=== PATIENT | male | born 1935 | race Caucasian/White ===

== ENCOUNTER 2021-07-15 11:19 | Inpatient (IN) | payer MEDICARE, BC ==
[2021-07-15] MEDS ORDERED: Sodium Chloride 0.9% 10 ML Syringe FLUSH PRN (11:42)
--- NOTE | 2021-07-15 12:56 | CR ---
PROCEDURE INFORMATION: Exam: XR Left Foot Exam date and time: 07/15/2021 11:58 AM Age: 86 years old Clinical indication: Other: Open nonhealing surgical wound S/P toe amputation; Prior surgery; Surgery date: 1-6 months; Surgery type: March 2021 toe amputation left foot TECHNIQUE: Imaging protocol: XR Left foot. Views: 1 or 2 views. COMPARISON: No relevant prior studies available. FINDINGS: Bones/joints: Amputation of the 5th toe. There is erosive change of the lateral distal 5th metatarsal head. No acute fractures. Soft tissues: Normal. Vasculature: Vascular calcifications. 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
[2021-07-15 12:57] LABS: ANION GAP 11.8 mEq/L (7-13); CHLORIDE,CL 92 mmol/L (98-107); SODIUM,NA 134 mmol/L (136-145)
--- NOTE | 2021-07-15 12:58 | CR ---
PROCEDURE INFORMATION: Exam: XR Chest Exam date and time: 07/15/2021 11:57 AM Age: 86 years old Clinical indication: Shortness of breath; Additional info: Short of breath TECHNIQUE: Imaging protocol: XR of the chest. Views: 1 view. COMPARISON: CR Chest 1V Frontal 04/30/2018 11:48 PM FINDINGS: Lungs: Right lower lobe atelectasis and consolidation. Right upper lobe linear atelectasis. Pleural spaces: Right pleural effusion. Heart/Mediastinum: Unremarkable. No cardiomegaly. Bones/joints: Unremarkable. IMPRESSION: Right pleural effusion with right lower lobe atelectasis/consolidation.
[2021-07-15] MEDS ORDERED: Potassium Chloride 10 MEQ in Premix Bag 1 BAG IV ONE (13:25)
[2021-07-15] MEDS ORDERED: Potassium Chloride 10 MEQ Tab.ER PO ONE (13:26)
[2021-07-15] MEDS ORDERED: Lidocaine 1% 30 ML SDV ONE (13:26)
[2021-07-15] MEDS ORDERED: Magnesium Sulfate/Water 2 GM in Premix Bag 1 BAG IV ONE (13:27)
--- NOTE | 2021-07-15 13:37 | EDM.PDOC ---
Scribed by Cherise Haider 07/15/21 1202 for Robbie Lizama MD ED HPI GENERAL MEDICAL PROBLEM - General Chief Complaint: General Stated Complaint: NO ENGERY BLOOD PRESSURE Time Seen by Provider: 07/15/21 11:31 Source of Information: Reports: Patient, Family (daughter), Old Records, RN, RN Notes Reviewed History Limitations: Reports: No Limitations - History of Present Illness INITIAL COMMENTS - FREE TEXT/NARRATIVE: Adult daughter presents pt to ER from home by POV with c/o slow progressive worsening of generalized weakness, shortness of breath, low temperature, low BP, confusion, and "failing" in general. Pt denies pain, and is not sure where he is. Pt is unable to provide any further history himself. [place] He has been "in and out" of [facility] this past year. He has been seen by Dr. Golden for anemia and other chronic issues. Family is worried that pt had a left toe amputation several weeks ago and it is open and not healing. Pt was supposed to have vascular stents in his legs about a year ago, but ended up hospitalized with pneumonia and never received stents. Hx of CHF, COPD, CKD, PVD, iron deficiency anemia, pneumonia, chronic A-fib, gout, and chronic resp. failure. Onset: Gradual Duration: Getting Worse Location: Reports: Generalized Quality: Reports: Other (Denies pain) Severity: Severe Improves with: Reports: None Worsens with: Reports: None Associated Symptoms: Reports: No Other Symptoms - Related Data Allergies Allergy/AdvReac Type Severity Reaction Status Date / Time cephalexin monohydrate Allergy Cannot Verified 07/15/21 11:49 [From Keflex] Remember Penicillins Allergy Cannot Verified 07/15/21 11:49 Remember tetanus and diphtheria Allergy Cannot Verified 07/15/21 11:49 toxoids Remember [tetanus & diphtheria toxoids] Home Meds: Home Meds Albuterol [Proventil Neb Soln] 2.5 mg INH Q4HR PRN 04/30/18 [History] Albuterol [Ventolin HFA] 2 puff INH Q4HR PRN 04/30/18 [History] Fluticasone/Salmeterol [Advair 500-50] 2 puff INH BID 04/30/18 [History] Tamsulosin HCl 0.4 mg PO DAILY 04/30/18 [History] Tiotropium [Spiriva HandiHaler] 18 mcg INH DAILY 04/30/18 [History] Verapamil HCl [Verapamil Sr] 40 mg PO DAILY 04/30/18 [History] Warfarin Sodium [Jantoven] 6 mg PO .3DAYSWEEKLY 04/30/18 [History] allopurinoL [Zyloprim] 100 mg PO DAILY 04/30/18 [History] Calcitriol 0.5 mcg PO .MTUWTHF 07/15/21 [History] Ferrous Sulfate 325 mg PO DAILY 07/15/21 [History] Magnesium Sulfate 100 mg PO DAILY 07/15/21 [History] Omeprazole 20 mg PO ACBREAKFAST 07/15/21 [History] Potassium Chloride [Klor-Con 10] 10 meq PO BID 07/15/21 [History] Warfarin Sodium [Jantoven] 4 mg PO .4DAYSWEEKLY 07/15/21 [History] polyethylene glycoL 3350 [MiraLAX] 17 gm PO DAILY PRN 07/15/21 [History] predniSONE [Prednisone] 5 mg PO DAILY 07/15/21 [History] Past Medical History HEENT History: Reports: Hard of Hearing, Other (See Below) Other HEENT History: bilateral hearing aids, dentures, reading glasses Cardiovascular History: Reports: Afib, Angina, CAD, Heart Failure, Hypertension Respiratory History: Reports: COPD, Pneumonia, Recurrent, SOB, Other (See Below) Other Respiratory History: emphymsema Gastrointestinal History: Reports: Bowel Obstruction, GERD Genitourinary History: Reports: Prostate Disorder, Renal Calculus Musculoskeletal History: Reports: Arthritis Dermatologic History: Reports: Eczema, Psoriasis Other Dermatologic History: questionable - Infectious Disease History Infectious Disease History: Reports: Chicken Pox, Measles, Mumps, Pertussis (Whooping Cough) - Past Surgical History GI Surgical History: Reports: Small Bowel Musculoskeletal Surgical History: Reports: Hip Replacement, ORIF Other Musculoskeletal Surgeries/Procedures:: left ORIF, Right KARIS Social & Family History - Family History Family Medical History: No Pertinent Family History Oncologic: Reports: Colon, Other (See Below) Other Oncologic Family History: mother colon ca, sister- brain ca - Caffeine Use Caffeine Use: Reports: Coffee - Living Situation & Occupation Living situation: Reports: , with Spouse Occupation: Retired ED ROS GENERAL - Review of Systems Review Of Systems: Comprehensive ROS is negative, except as noted in HPI. ED EXAM, GENERAL - Physical Exam Exam: See Below Exam Limited By: No Limitations General Appearance: Alert, No Apparent Distress, Cachetic, Other (Frail elderly appearing.) Eye Exam: Bilateral Eye: EOMI, Normal Inspection, PERRL Ears: Normal External Exam, Hearing Grossly Normal Nose: Normal Inspection, No Blood Throat/Mouth: Normal Lips, Normal Voice, No Airway Compromise Head: Atraumatic, Normocephalic Neck: Normal Inspection, Non-Tender Respiratory/Chest: Chest Non-Tender, Decreased Breath Sounds. No: Crackles, Rales, Rhonchi, Wheezing Cardiovascular: Tachycardia, Irregularly Irregular GI/Abdominal: Normal Bowel Sounds, Soft, Non-Tender Extremities: Normal Range of Motion, Non-Tender, No Pedal Edema, Other (Left foot has a slow to heal surgical wound from a 5th toe ampuation, but is granulated and not open.) Neurological: Alert, Oriented (to person only), Confused Psychiatric: Normal Mood, Flat Affect Skin Exam: Dry, No Rash, Cool, Pallor #1 Interpretation EKG Date: 07/15/21 Time: 11:50 Rhythm: A-Fib Rate (Beats/Min): 111 [place]: Normal P-Wave: Present QRS: Normal ST-T: Normal QT: Normal Comparison: NA - No Prior EKG Course - Vital Signs Last Recorded V/S: Last Vital Signs Temp 96.7 F L 07/15/21 12:08 Pulse 107 H 07/15/21 12:08 Resp 20 07/15/21 12:08 BP 113/91 H 07/15/21 12:08 Pulse Ox - Orders/Labs/Meds Orders: Active Orders 24 hr Category Date Time Status Peripheral IV Care [RC] . DIRECTED Care 07/15/21 11:42 Active CORONAVIRUS COVID-19 PING [MOLEC] Stat Lab 07/15/21 12:51 Received CULTURE BLOOD [BC] Stat Lab 07/15/21 12:10 Received CULTURE BLOOD [BC] Stat Lab 07/15/21 12:25 Results REFLEX LACTIC ACID YES OR NO [CHEM] Routine Lab 07/15/21 13:03 Received UA RFX FADIA AND CULT IF INDIC [URIN] Stat Lab 07/15/21 11:42 Ordered Magnesium Sulfate/Water [Magnesium Sulfate in Water 2 Med 07/15/21 13:27 Ordered GM/50 ML] 2 gm Premix Bag 1 bag IV ONETIME Potassium Chloride [KCl in Water 10 MEQ/100 ML] 10 meq Med 07/15/21 13:25 Ordered Premix Bag 1 bag IV ONETIME Sodium Chloride 0.9% [Saline Flush] Med 07/15/21 11:42 Active 10 ml FLUSH ASDIRECTED PRN Blood Culture x2 Reflex Set [OM.PC] Stat Oth 07/15/21 11:40 Ordered Peripheral IV Insertion Adult [OM.PC] Stat Oth 07/15/21 11:41 Ordered Medication Orders Potassium Chloride 10 meq/ (Premix) 100 mls @ 100 mls/hr IV ONETIME ONE Stop: 07/15/21 14:24 Magnesium Sulfate 2 gm/ Premix 50 mls @ 25 mls/hr IV ONETIME ONE Stop: 07/15/21 15:26 Sodium Chloride (Sodium Chloride 0.9% 10 Ml Syringe) 10 ml FLUSH ASDIRECTED PRN PRN Reason: Keep Vein Open Last Admin: 07/15/21 13:16 Dose: 10 ml Documented by: [id number] Labs: Laboratory Tests 07/15/21 07/15/21 07/15/21 Range/Units 12:10 12:10 12:10 WBC 6.7 (5.0-10.0) 10^3/uL RBC 2.75 L (4.6-6.2) 10^6/uL Hgb 10.1 L (14.0-18.0) g/dL Hct 30.1 L (40.0-54.0) % MCV 109.5 H D (80-100) fL MCH 36.7 H (27.0-34.0) pg MCHC 33.6 (33.0-35.0) g/dL Plt Count 194 (150-450) 10^3/uL Neut % (Auto) 81.7 H (42.2-75.2) % Lymph % (Auto) 11.1 L (20.5-50.1) % Chaves % (Auto) 7.2 (2-8) % Eos % (Auto) 0.0 L (1.0-3.0) % Baso % (Auto) 0.0 (0.0-1.0) % PT 29.6 H D (9.0-12.0) SEC INR 3.0 H (0.9-1.2) APTT 35.0 H (22.0-34.0) SEC Sodium 134 L (136-145) mmol/L Potassium 2.8 L (3.5-5.1) mmol/L Chloride 92 L (98-107) mmol/L Carbon Dioxide 33 H (21-32) mmol/L Anion Gap 11.8 (7-13) mEq/L BUN 67 H (7-18) mg/dL Creatinine 2.20 H (0.70-1.30) mg/dL Est Cr Clr Drug Dosing TNP Estimated GFR (MDRD) 28 BUN/Creatinine Ratio 30.5 (No establ ref range) Glucose 84 (70-99) mg/dL Lactic Acid (0.4-2.0) mmol/L Calcium 7.6 L (8.5-10.1) mg/dL Magnesium 1.3 L (1.8-2.4) mg/dL Total Bilirubin 1.0 (0.2-1.0) mg/dL AST 27 (15-37) U/L ALT 24 (16-63) U/L Alkaline Phosphatase 129 H (46-116) U/L Troponin I High Sens 44 (<=76) pg/mL B-Natriuretic Peptide 312 H (0-100) pg/ml Total Protein 5.3 L (6.4-8.2) g/dL Albumin 2.3 L (3.4-5.0) g/dL Globulin 3.0 Albumin/Globulin Ratio 0.77 10/10/21 Range/Units 12:10 WBC (5.0-10.0) 10^3/uL RBC (4.6-6.2) 10^6/uL Hgb (14.0-18.0) g/dL Hct (40.0-54.0) % MCV (80-100) fL MCH (27.0-34.0) pg MCHC (33.0-35.0) g/dL Plt Count (150-450) 10^3/uL Neut % (Auto) (42.2-75.2) % Lymph % (Auto) (20.5-50.1) % Chaves % (Auto) (2-8) % Eos % (Auto) (1.0-3.0) % Baso % (Auto) (0.0-1.0) % PT (9.0-12.0) SEC INR (0.9-1.2) APTT (22.0-34.0) SEC Sodium (136-145) mmol/L Potassium (3.5-5.1) mmol/L Chloride (98-107) mmol/L Carbon Dioxide (21-32) mmol/L Anion Gap (7-13) mEq/L BUN (7-18) mg/dL Creatinine (0.70-1.30) mg/dL Est Cr Clr Drug Dosing Estimated GFR (MDRD) BUN/Creatinine Ratio (No establ ref range) Glucose (70-99) mg/dL Lactic Acid 2.7 H* (0.4-2.0) mmol/L Calcium (8.5-10.1) mg/dL Magnesium (1.8-2.4) mg/dL Total Bilirubin (0.2-1.0) mg/dL AST (15-37) U/L ALT (16-63) U/L Alkaline Phosphatase (46-116) U/L Troponin I High Sens (<=76) pg/mL B-Natriuretic Peptide (0-100) pg/ml Total Protein (6.4-8.2) g/dL Albumin (3.4-5.0) g/dL Globulin Albumin/Globulin Ratio Meds: Medications Generic Name Dose Route Start Last Admin Trade Name Freq PRN Reason Stop Dose Admin Potassium Chloride 10 meq/ 100 mls @ 100 mls/hr 07/15/21 13:25 Premix IV 07/15/21 14:24 ONETIME ONE Magnesium Sulfate 2 gm/ Premix 50 mls @ 25 mls/hr 07/15/21 13:27 IV 07/15/21 15:26 ONETIME ONE Sodium Chloride 10 ml 07/15/21 11:42 07/15/21 13:16 Sodium Chloride 0.9% 10 Ml Syringe FLUSH 10 ml ASDIRECTED PRN Administration Keep Vein Open Discontinued Medications Generic Name Dose Route Start Last Admin Trade Name Freq PRN Reason Stop Dose Admin Lidocaine HCl 1 ml 07/15/21 13:26 Lidocaine 1% 30 Ml Sdv .XX 07/15/21 13:27 ONETIME ONE Potassium Chloride 40 meq 07/15/21 13:26 Potassium Chloride 10 Meq Tab.Er PO 07/15/21 13:27 ONETIME ONE - Radiology Interpretation Free Text/Narrative:: [facility] Final Radiology Report Call: [phone] assistance Online chat: [email or web address] Name: AMEE MERCER Age: 86Years M Date: 07/15/2021 SSN: -- : [id number] Study: CR FOOT 2V LT Requesting Physician: ROBBIE LIZAMA Images: 2 Addl Studies: Provided Clinical History: Open nonhealing surgical wound s/p toe amputation Contrast: Contrast Medium: Contrast Amount: Contrast Method: CONFIDENTIALITY STATEMENT This report is intended only for use by the referring physician, and only in accordance with law. If you received this in error, call [phone]. Page 1 of 1 PROCEDURE INFORMATION: Exam: XR Left Foot Exam date and time: 07/15/2021 11:58 AM Age: 86 years old Clinical indication: Other: Open nonhealing surgical wound S/P toe amputation; Prior surgery; Surgery date: 1-6 months; Surgery type: March 2021 toe amputation left foot TECHNIQUE: Imaging protocol: XR Left foot. Views: 1 or 2 views. COMPARISON: No relevant prior studies available. FINDINGS: Bones/joints: Amputation of the 5th toe. There is erosive change of the lateral distal 5th metatarsal head. No acute fractures. Soft tissues: Normal. Vasculature: Vascular calcifications. 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 Thank you for allowing us to participate in the care of your patient. Dictated and Authenticated by: Zen Byrne MD 07/15/2021 12:56 PM Central Time ([place] & [place]) [facility] Final Radiology Report Call: [phone] assistance Online chat: [email or web address] Name: AMEE MERCER Age: 86Years M Date: 07/15/2021 SSN: -- : [id number] Study: CR CHEST 1V FRONTAL Requesting Physician: ROBBIE LIZAMA Images: 1 Addl Studies: Provided Clinical History: short of breath Contrast: Contrast Medium: Contrast Amount: Contrast Method: CONFIDENTIALITY STATEMENT This report is intended only for use by the referring physician, and only in accordance with law. If you received this in error, call [phone]. Page 1 of 1 PROCEDURE INFORMATION: Exam: XR Chest Exam date and time: 07/15/2021 11:57 AM Age: 86 years old Clinical indication: Shortness of breath; Additional info: Short of breath TECHNIQUE: Imaging protocol: XR of the chest. Views: 1 view. COMPARISON: CR Chest 1V Frontal 04/30/2018 11:48 PM FINDINGS: Lungs: Right lower lobe atelectasis and consolidation. Right upper lobe linear atelectasis. Pleural spaces: Right pleural effusion. Heart/Mediastinum: Unremarkable. No cardiomegaly. Bones/joints: Unremarkable. IMPRESSION: Right pleural effusion with right lower lobe atelectasis/consolidation. Thank you for allowing us to participate in the care of your patient. Dictated and Authenticated by: Zen Byrne MD 07/15/2021 12:58 PM Central Time ([place] & [place]) - Re-Assessments/Exams Free Text/Narrative Re-Assessment/Exam: 07/15/21 13:35 Pt's daughter is aware that the pt has end stage chronic disease, and is not expecting any heroic measures, but would like her father to receive conservative medical treatment with the goal of comfort and hope of eventual discharge so that she can move him to an assisted living facility. Departure - Departure Time of Disposition: 13:29 (admit to Dr. Ball) Disposition: Admitted As Inpatient 65 Condition: Poor Clinical Impression: Hypokalemia, Hypomagnesemia, End stage chronic obstructive pulmonary disease, Recurrent right pleural effusion, Acute osteomyelitis of metatarsal bone of left foot Acute on chronic respiratory failure Qualifiers: Respiratory failure complication: hypoxia Qualified Code(s): J96.21 - Acute and chronic respiratory failure with hypoxia CKD (chronic kidney disease) Qualifiers: Chronic kidney disease stage: unspecified stage Qualified Code(s): N18.9 - Chronic kidney disease, unspecified - Discharge Information *PRESCRIPTION DRUG MONITORING PROGRAM REVIEWED*: Not Applicable *COPY OF PRESCRIPTION DRUG MONITORING REPORT IN PATIENT RODOLFO: Not Applicable Forms: ED Department Discharge Sepsis Event Note (ED) - Focused Exam Vital Signs: Vital Signs Temp Pulse Resp BP 07/15/21 12:08 96.7 F L 107 H 20 113/91 H - My Orders Last 24 Hours: My Active Orders 07/15/21 11:40 Blood Culture x2 Reflex Set [OM.PC] Stat 07/15/21 11:41 Peripheral IV Insertion Adult [OM.PC] Stat 07/15/21 11:42 Peripheral IV Care [RC] . DIRECTED UA RFX FADIA AND CULT IF INDIC [URIN] Stat Sodium Chloride 0.9% [Saline Flush] 10 ml FLUSH ASDIRECTED PRN 07/15/21 12:10 CULTURE BLOOD [BC] Stat 07/15/21 12:25 CULTURE BLOOD [BC] Stat 07/15/21 12:51 CORONAVIRUS COVID-19 PING [MOLEC] Stat 07/15/21 13:03 REFLEX LACTIC ACID YES OR NO [CHEM] Routine 07/15/21 13:25 Potassium Chloride [KCl in Water 10 MEQ/100 ML] 10 meq Premix Bag 1 bag IV ONETIME 07/15/21 13:27 Magnesium Sulfate/Water [Magnesium Sulfate in Water 2 GM/50 ML] 2 gm Premix Bag 1 bag IV ONETIME - Assessment/Plan Last 24 Hours: My Active Orders 07/15/21 11:40 Blood Culture x2 Reflex Set [OM.PC] Stat 07/15/21 11:41 Peripheral IV Insertion Adult [OM.PC] Stat 07/15/21 11:42 Peripheral IV Care [RC] . DIRECTED UA RFX FADIA AND CULT IF INDIC [URIN] Stat Sodium Chloride 0.9% [Saline Flush] 10 ml FLUSH ASDIRECTED PRN 07/15/21 12:10 CULTURE BLOOD [BC] Stat 07/15/21 12:25 CULTURE BLOOD [BC] Stat 07/15/21 12:51 CORONAVIRUS COVID-19 PING [MOLEC] Stat 07/15/21 13:03 REFLEX LACTIC ACID YES OR NO [CHEM] Routine 07/15/21 13:25 Potassium Chloride [KCl in Water 10 MEQ/100 ML] 10 meq Premix Bag 1 bag IV ONETIME 07/15/21 13:27 Magnesium Sulfate/Water [Magnesium Sulfate in Water 2 GM/50 ML] 2 gm Premix Bag 1 bag IV ONETIME I have read and agree with the documentation that has been completed regarding t his visit. By signing this record, I attest that the documentation was completed in my physical presence and is an accurate record of the encounter.
--- NOTE | 2021-07-15 15:04 | PCM.HP ---
H&P History of Present Illness - General Date of Service: 07/15/21 Admit Problem/Dx: Admission Diagnosis/Problem Admission Diagnosis/Problem Chronic respiratory failure Source of Information: Provider (ER), Other (old records) History Limitations: Reports: Other (poor histroian) - History of Present Illness Initial Comments - Free Text/Narative: Pt was brought by his daughter to ER from home with c/o slow progressive worsening of generalized weakness, shortness of breath, low temperature, low BP, confusion, and "failing" in general. Pt is unable to provide any further history himself. [place] He has been "in and out" Hospital this past year. Family is worried that pt had a left toe amputation several weeks ago and it is open and not healing. Hx of CHF, COPD, CKD, PVD, iron deficiency anemia, pneumonia, chronic A-fib, gout, and chronic resp. failure. IN ER. Pt's daughter was made aware that the pt has end stage chronic disease, and is not expecting any heroic measures, but would like her father to receive conservative medical treatment with the goal of comfort and hope of eventual discharge so that she can move him to an assisted living facility. Pt was from the ER with diagnosis of Hypokalemia, Hypomagnesemia, acute on chronic obstructive pulmonary disease, Recurrent right pleural effusion, Acute osteomyelitis of metatarsal bone of left foot; and Chronic kidney disease. - Related Data Allergies/Adverse Reactions: Allergies Allergy/AdvReac Type Severity Reaction Status Date / Time cephalexin monohydrate Allergy Cannot Verified 07/15/21 15:04 [From Keflex] Remember Penicillins Allergy Cannot Verified 07/15/21 15:04 Remember tetanus and diphtheria Allergy Cannot Verified 07/15/21 15:04 toxoids Remember [tetanus & diphtheria toxoids] Home Medications: Home Meds Albuterol [Proventil Neb Soln] 2.5 mg INH Q4HR PRN 04/30/18 [History] Albuterol [Ventolin HFA] 2 puff INH Q4HR PRN 04/30/18 [History] Fluticasone/Salmeterol [Advair 500-50] 2 puff INH BID 04/30/18 [History] Tamsulosin HCl 0.4 mg PO DAILY 04/30/18 [History] Tiotropium [Spiriva HandiHaler] 18 mcg INH DAILY 04/30/18 [History] Verapamil HCl [Verapamil Sr] 40 mg PO DAILY 04/30/18 [History] Warfarin Sodium [Jantoven] 6 mg PO .3DAYSWEEKLY 04/30/18 [History] allopurinoL [Zyloprim] 100 mg PO DAILY 04/30/18 [History] Calcitriol 0.5 mcg PO .MTUWTHF 07/15/21 [History] Ferrous Sulfate 325 mg PO DAILY 07/15/21 [History] Magnesium Sulfate 100 mg PO DAILY 07/15/21 [History] Omeprazole 20 mg PO ACBREAKFAST 07/15/21 [History] Potassium Chloride [Klor-Con 10] 10 meq PO BID 07/15/21 [History] Warfarin Sodium [Jantoven] 4 mg PO .4DAYSWEEKLY 07/15/21 [History] polyethylene glycoL 3350 [MiraLAX] 17 gm PO DAILY PRN 07/15/21 [History] predniSONE [Prednisone] 5 mg PO DAILY 07/15/21 [History] Past Medical History HEENT History: Reports: Hard of Hearing, Other (See Below) Other HEENT History: bilateral hearing aids, dentures, reading glasses Cardiovascular History: Reports: Afib, Angina, Heart Failure, Hypertension Respiratory History: Reports: COPD, Pneumonia, Recurrent, Other (See Below) Other Respiratory History: emphysema Gastrointestinal History: Reports: Bowel Obstruction, GERD Genitourinary History: Reports: Prostate Disorder, Renal Calculus Musculoskeletal History: Reports: Arthritis Dermatologic History: Reports: Eczema, Psoriasis Other Dermatologic History: questionable - Infectious Disease History Infectious Disease History: Reports: Chicken Pox, Measles, Mumps, Pertussis (Whooping Cough) - Past Surgical History GI Surgical History: Reports: Small Bowel Musculoskeletal Surgical History: Reports: Hip Replacement, ORIF, Other (See Below) Other Musculoskeletal Surgeries/Procedures:: left ORIF, Right KARIS, L) 5th toe amputation Social & Family History - Family History Family Medical History: No Pertinent Family History Oncologic: Reports: Colon, Other (See Below) Other Oncologic Family History: mother colon ca, sister- brain ca - Tobacco Use Tobacco Use Status *Q: Former Tobacco User Used Tobacco, but Quit: Yes Month/Year Tobacco Last Used: - - Caffeine Use Caffeine Use: Reports: Coffee - Recreational Drug Use Recreational Drug Use: No H&P Review of Systems - Review of Systems: Review Of Systems: Unable To Obtain Reason Not Obtained: poor histroian General: Denies: Fever, Chills Pulmonary: Reports: Shortness of Breath Gastrointestinal: Denies: Abdominal Pain, Diarrhea, Nausea, Vomiting Neurological: Reports: No Symptoms Hematologic/Lymphatic: Reports: No Symptoms Immunologic: Reports: No Symptoms Exam - Exam Exam: See Below - Vital Signs Vital Signs: Last Vital Signs Temp 96.7 F L 07/15/21 12:08 Pulse 107 H 07/15/21 12:08 Resp 20 07/15/21 12:08 BP 113/91 H 07/15/21 12:08 Pulse Ox - Exam Quality Assessment: Supplemental Oxygen General: Alert, Oriented, Cooperative, Mild Distress HEENT: No: Hearing Intact Lungs: Clear to Auscultation Cardiovascular: Irregular Rhythm GI/Abdominal Exam: Soft, Non-Tender Rectal (Males) Exam: Deferred Extremities: Pedal Edema, Other (left toe in dressing ) Skin: Dry Neurological: Cranial Nerves Intact Neuro Extensive - Mental Status: Alert Neuro Extensive - Motor, Sensory, Reflexes: CN II-XII Intact, Other (moving allext) Psychiatric: Alert - Patient Data Lab Results Last 24 hrs: Laboratory Results - last 24 hr 07/15/21 07/15/21 07/15/21 Range/Units 12:10 12:10 12:10 WBC 6.7 (5.0-10.0) 10^3/uL RBC 2.75 L (4.6-6.2) 10^6/uL Hgb 10.1 L (14.0-18.0) g/dL Hct 30.1 L (40.0-54.0) % MCV 109.5 H D (80-100) fL MCH 36.7 H (27.0-34.0) pg MCHC 33.6 (33.0-35.0) g/dL Plt Count 194 (150-450) 10^3/uL Neut % (Auto) 81.7 H (42.2-75.2) % Lymph % (Auto) 11.1 L (20.5-50.1) % [place] % (Auto) 7.2 (2-8) % Eos % (Auto) 0.0 L (1.0-3.0) % Baso % (Auto) 0.0 (0.0-1.0) % PT 29.6 H D (9.0-12.0) SEC INR 3.0 H (0.9-1.2) APTT 35.0 H (22.0-34.0) SEC Sodium 134 L (136-145) mmol/L Potassium 2.8 L (3.5-5.1) mmol/L Chloride 92 L (98-107) mmol/L Carbon Dioxide 33 H (21-32) mmol/L Anion Gap 11.8 (7-13) mEq/L BUN 67 H (7-18) mg/dL Creatinine 2.20 H (0.70-1.30) mg/dL Est Cr Clr Drug Dosing TNP Estimated GFR (MDRD) 28 BUN/Creatinine Ratio 30.5 (No establ ref range) Glucose 84 (70-99) mg/dL Lactic Acid (0.4-2.0) mmol/L Calcium 7.6 L (8.5-10.1) mg/dL Magnesium 1.3 L (1.8-2.4) mg/dL Total Bilirubin 1.0 (0.2-1.0) mg/dL AST 27 (15-37) U/L ALT 24 (16-63) U/L Alkaline Phosphatase 129 H (46-116) U/L Troponin I High Sens 44 (<=76) pg/mL B-Natriuretic Peptide 312 H (0-100) pg/ml Total Protein 5.3 L (6.4-8.2) g/dL Albumin 2.3 L (3.4-5.0) g/dL Globulin 3.0 Albumin/Globulin Ratio 0.77 SARS-CoV-2 RNA (PING) (NEGATIVE) 07/15/21 07/15/21 Range/Units 12:10 12:51 WBC (5.0-10.0) 10^3/uL RBC (4.6-6.2) 10^6/uL Hgb (14.0-18.0) g/dL Hct (40.0-54.0) % MCV (80-100) fL MCH (27.0-34.0) pg MCHC (33.0-35.0) g/dL Plt Count (150-450) 10^3/uL Neut % (Auto) (42.2-75.2) % Lymph % (Auto) (20.5-50.1) % [place] % (Auto) (2-8) % Eos % (Auto) (1.0-3.0) % Baso % (Auto) (0.0-1.0) % PT (9.0-12.0) SEC INR (0.9-1.2) APTT (22.0-34.0) SEC Sodium (136-145) mmol/L Potassium (3.5-5.1) mmol/L Chloride (98-107) mmol/L Carbon Dioxide (21-32) mmol/L Anion Gap (7-13) mEq/L BUN (7-18) mg/dL Creatinine (0.70-1.30) mg/dL Est Cr Clr Drug Dosing Estimated GFR (MDRD) BUN/Creatinine Ratio (No establ ref range) Glucose (70-99) mg/dL Lactic Acid 2.7 H* (0.4-2.0) mmol/L Calcium (8.5-10.1) mg/dL Magnesium (1.8-2.4) mg/dL Total Bilirubin (0.2-1.0) mg/dL AST (15-37) U/L ALT (16-63) U/L Alkaline Phosphatase (46-116) U/L Troponin I High Sens (<=76) pg/mL B-Natriuretic Peptide (0-100) pg/ml Total Protein (6.4-8.2) g/dL Albumin (3.4-5.0) g/dL Globulin Albumin/Globulin Ratio SARS-CoV-2 RNA (PING) Negative (NEGATIVE) Result Diagrams: 07/15/21 12:10 07/15/21 12:10 Eduar Results Last 24 hrs: Microbiology 07/15/21 12:25 Anaerobic Blood Culture - Final Blood - Venous - Iv Start Imaging Impressions Last 24 hrs: [facility] [place] [facility] Final Radiology Report Call: [phone] Page 1 of 1 PROCEDURE INFORMATION: Exam: XR Left Foot Exam date and time: 07/15/2021 11:58 AM Age: 86 years old Clinical indication: Other: Open nonhealing surgical wound S/P toe amputation; Prior surgery; Surgery date: 1-6 months; Surgery type: March 2021 toe amputation left foot TECHNIQUE: Imaging protocol: XR Left foot. Views: 1 or 2 views. COMPARISON: No relevant prior studies available. FINDINGS: Bones/joints: Amputation of the 5th toe. There is erosive change of the lateral distal 5th metatarsal head. No acute fractures. Soft tissues: Normal. Vasculature: Vascular calcifications. 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 Thank you for allowing us to participate in the care of your patient. Dictated and Authenticated by: Zen Byrne MD 07/15/2021 12:56 PM Central Time ([place] & [place]) [facility] Final Radiology Report Call: [phone] assistance Online chat: [email or web address] Name: AMEE MERCER Age: 86Years M Date: 07/15/2021 SSN: -- : [id number] Study: CR CHEST 1V FRONTAL Requesting Physician: MIREILLE ADDISON Images: 1 Addl Studies: Provided Clinical History: short of breath Contrast: Contrast Medium: Contrast Amount: Contrast Method: CONFIDENTIALITY STATEMENT This report is intended only for use by the referring physician, and only in accordance with law. If you received this in error, call [phone]. Page 1 of 1 PROCEDURE INFORMATION: Exam: XR Chest Exam date and time: 07/15/2021 11:57 AM Age: 86 years old Clinical indication: Shortness of breath; Additional info: Short of breath TECHNIQUE: Imaging protocol: XR of the chest. Views: 1 view. COMPARISON: CR Chest 1V Frontal 04/30/2018 11:48 PM FINDINGS: Lungs: Right lower lobe atelectasis and consolidation. Right upper lobe linear atelectasis. Pleural spaces: Right pleural effusion. Heart/Mediastinum: Unremarkable. No cardiomegaly. Bones/joints: Unremarkable. IMPRESSION: Right pleural effusion with right lower lobe atelectasis/consolidation. Thank you for allowing us to participate in the care of your patient. Problem List Initiated/Reviewed/Updated: No Orders Last 24hrs: Active Orders 24 hr Category Date Time Status Admission Diagnosis [ADT] Stat ADT 07/15/21 13:43 Ordered Admission Status [Patient Status] [ADT] Routine ADT 07/15/21 13:43 Active Peripheral IV Care [RC] . DIRECTED Care 07/15/21 11:42 Active CULTURE BLOOD [BC] Stat Lab 07/15/21 12:10 Received CULTURE BLOOD [BC] Stat Lab 07/15/21 12:25 Results LACTIC ACID [CHEM] Routine Lab 07/15/21 15:03 Ordered UA RFX EDUAR AND CULT IF INDIC [URIN] Stat Lab 07/15/21 11:42 Ordered Magnesium Sulfate/Water [Magnesium Sulfate in Water 2 Med 07/15/21 13:27 Active GM/50 ML] 2 gm Premix Bag 1 bag IV ONETIME Sodium Chloride 0.9% [Saline Flush] Med 07/15/21 11:42 Active 10 ml FLUSH ASDIRECTED PRN Blood Culture x2 Reflex Set [OM.PC] Stat Oth 07/15/21 11:40 Ordered Peripheral IV Insertion Adult [OM.PC] Stat Oth 07/15/21 11:41 Ordered Medication Orders Magnesium Sulfate 2 gm/ Premix 50 mls @ 25 mls/hr IV ONETIME ONE Stop: 07/15/21 15:26 Sodium Chloride (Sodium Chloride 0.9% 10 Ml Syringe) 10 ml FLUSH ASDIRECTED PRN PRN Reason: Keep Vein Open Last Admin: 07/15/21 13:16 Dose: 10 ml Documented by: [email or web address] Assessment/Plan Comment:: Pt was from the ER with diagnosis of Hypokalemia, Hypomagnesemia, acute on chronic obstructive pulmonary disease, Recurrent right pleural effusion, Acute osteomyelitis of metatarsal bone of left foot; and Chronic kidney disease. Rt pleural effusion with lower lobe atelectasis vs infiltrate. Generalized weakness: PT/OT Hypokalemia, Hypomagnesemia: for replacement acute on chronic obstructive pulmonary disease: continue with O2 and Nebs Rt pleural effusion with lower lobe atelectasis vs infiltrate: Zosyn Recurrent right pleural effusion, Acute osteomyelitis of metatarsal bone of left foot: Zosyn Chronic kidney disease. continue home medications DNR/ DNI as pts daughter in ER.
[2021-07-15] MEDS ORDERED: Polyethylene Glycol 3350 Powder 17 GM Packet PO PRN (15:15)
[2021-07-15] MEDS ORDERED: Warfarin 2 MG Tab PO SCH (15:15)
[2021-07-15] MEDS ORDERED: Albuterol 6.7 GM Inhaler INH PRN (15:15)
[2021-07-15] MEDS ORDERED: Albuterol 0.083% 2.5 MG/3 ML Neb Soln INH PRN (15:15)
[2021-07-15] MEDS ORDERED: Warfarin 5 MG Tab PO SCH (15:15)
[2021-07-15] MEDS ORDERED: Bisacodyl 5 MG Tab PO PRN (15:44)
[2021-07-15] MEDS ORDERED: Docusate Sodium 100 MG Cap PO PRN (15:44)
[2021-07-15] MEDS ORDERED: Ondansetron 4 MG/2 ML SDV IVPUSH PRN (15:44)
[2021-07-15] MEDS ORDERED: Piperacillin/Tazobactam 3.375 GM in Sodium Chloride 0.9% 100 ML IV SCH (15:45)
[2021-07-15] MEDS ORDERED: Potassium Chloride 10 MEQ Tab.ER ONE (18:16)
[2021-07-15] MEDS: Levofloxacin/Dextrose 5%-Water 500 MG in Premix Bag 1 BAG IV SCH (19:52)
[2021-07-15] MEDS ORDERED: Warfarin 2 MG Tab PO ONE (20:00)
[2021-07-15] MEDS: Acetaminophen 325 MG Tab PO PRN (20:54)
[2021-07-15] MEDS: Formoterol/Mometasone 200-5 MCG 8.8 GM Inhaler IH SCH (20:56)
[2021-07-15] MEDS ORDERED: Potassium Chloride 10 MEQ Tab.ER PO SCH (21:00)
[2021-07-16] MEDS: NS + KCl 20mEq/L 1,000 ML IV SCH ×2 (00:45→14:34)
[2021-07-16] MEDS: Acetaminophen 325 MG Tab PO PRN (03:30)
[2021-07-16] MEDS: Omeprazole 20 MG Cap.CR PO SCH (06:03)
[2021-07-16 07:06] LABS: ANION GAP 10.1 mEq/L (7-13)
[2021-07-16] MEDS ORDERED: Magnesium Sulfate/Water 2 GM in Premix Bag 1 BAG IV ONE (09:00)
[2021-07-16] MEDS: Ferrous Sulfate 325 MG Tab PO SCH (09:32)
[2021-07-16] MEDS: Calcitriol 0.25 MCG Cap PO SCH (09:32)
[2021-07-16] MEDS: Tamsulosin 0.4 MG Cap.ER PO SCH (09:32)
[2021-07-16] MEDS: Potassium Chloride 10 MEQ Tab.ER PO SCH ×2 (09:33→17:43)
[2021-07-16] MEDS: Allopurinol 100 MG Tab PO SCH (09:33)
[2021-07-16] MEDS: predniSONE 5 MG Tab PO SCH (09:33)
[2021-07-16] MEDS: Tiotropium Inhaler 18 MCG Inhalation Powder Cap Kit of 5 INH SCH (09:36)
[2021-07-16] MEDS: Formoterol/Mometasone 200-5 MCG 8.8 GM Inhaler IH SCH ×2 (12:06→22:07)
--- NOTE | 2021-07-16 13:27 | PCM.PN ---
- General Info Date of Service: 07/16/21 Functional Status: Reports: Pain Controlled, Tolerating Diet - Review of Systems General: Denies: Fever Pulmonary: Denies: Shortness of Breath Cardiovascular: Denies: Chest Pain Gastrointestinal: Denies: Abdominal Pain Genitourinary: Denies: Dysuria Neurological: Denies: Confusion Psychiatric: Denies: Confusion - Patient Data Vitals - Most Recent: Last Vital Signs Temp 97.0 F 07/16/21 07:00 Pulse 81 07/16/21 07:00 Resp 18 07/16/21 07:00 BP 90/47 L 07/16/21 07:00 Pulse Ox 97 07/16/21 07:00 Weight - Most Recent: 126 lb 12.8 oz I&O - Last 24 Hours: Intake & Output 07/15/21 07/16/21 07/16/21 22:59 06:59 14:59 Output Total 200 75 Balance -200 -75 Lab Results Last 24 Hours: Laboratory Results - last 24 hr 07/15/21 07/15/21 07/15/21 Range/Units 12:51 15:49 20:53 WBC (5.0-10.0) 10^3/uL RBC (4.6-6.2) 10^6/uL Hgb (14.0-18.0) g/dL Hct (40.0-54.0) % MCV (80-100) fL MCH (27.0-34.0) pg MCHC (33.0-35.0) g/dL Plt Count (150-450) 10^3/uL PT (9.0-12.0) SEC INR (0.9-1.2) Sodium (136-145) mmol/L Potassium (3.5-5.1) mmol/L Chloride (98-107) mmol/L Carbon Dioxide (21-32) mmol/L Anion Gap (7-13) mEq/L BUN (7-18) mg/dL Creatinine (0.70-1.30) mg/dL Est Cr Clr Drug Dosing mL/min Estimated GFR (MDRD) Glucose (70-99) mg/dL POC Glucose (70-99) mg/dL Lactic Acid 1.2 (0.4-2.0) mmol/L Calcium (8.5-10.1) mg/dL Magnesium (1.8-2.4) mg/dL Iron (65-175) ug/dL TIBC (250-450) ug/dL % Saturation (20.0-50.0) % Urine Color Yellow (YELLOW) Urine Appearance Cloudy (CLEAR) Urine pH 6.5 (5.0-9.0) Ur Specific [place] 1.015 (1.005-1.030) Urine Protein Negative (NEGATIVE) Urine Glucose (UA) Negative (NEGATIVE) Urine Ketones Negative (NEGATIVE) Urine Occult Blood Moderate H (NEGATIVE) Urine Nitrite Negative (NEGATIVE) Urine Bilirubin Negative (NEGATIVE) Urine Urobilinogen 0.2 (0.2-1.0) mg/dL Ur Leukocyte Esterase Moderate H (NEGATIVE) Urine RBC 20-30 H (0-5) /HPF Urine WBC >100 H (0-5/HPF) /HPF Ur Epithelial Cells Rare (NOT SEEN) /HPF Amorphous Sediment Few (NOT SEEN) /HPF Urine Bacteria Many H (0-FEW/HPF) /HPF Urine Mucus Not seen (NOT SEEN) /LPF SARS-CoV-2 RNA (PING) Negative (NEGATIVE) 07/16/21 07/16/21 07/16/21 Range/Units 06:33 06:33 06:33 WBC 5.2 (5.0-10.0) 10^3/uL RBC 2.16 L (4.6-6.2) 10^6/uL Hgb 7.9 L D (14.0-18.0) g/dL Hct 23.7 L (40.0-54.0) % MCV 109.7 H (80-100) fL MCH 36.6 H (27.0-34.0) pg MCHC 33.3 (33.0-35.0) g/dL Plt Count 147 L (150-450) 10^3/uL PT 28.4 H (9.0-12.0) SEC INR 2.9 H (0.9-1.2) Sodium 133 L (136-145) mmol/L Potassium 3.1 L (3.5-5.1) mmol/L Chloride 94 L (98-107) mmol/L Carbon Dioxide 32 (21-32) mmol/L Anion Gap 10.1 (7-13) mEq/L BUN 69 H (7-18) mg/dL Creatinine 2.11 H (0.70-1.30) mg/dL Est Cr Clr Drug Dosing 20.07 mL/min Estimated GFR (MDRD) 30 Glucose 73 (70-99) mg/dL POC Glucose (70-99) mg/dL Lactic Acid (0.4-2.0) mmol/L Calcium 7.1 L (8.5-10.1) mg/dL Magnesium 1.5 L (1.8-2.4) mg/dL Iron (65-175) ug/dL TIBC (250-450) ug/dL % Saturation (20.0-50.0) % Urine Color (YELLOW) Urine Appearance (CLEAR) Urine pH (5.0-9.0) Ur Specific [place] (1.005-1.030) Urine Protein (NEGATIVE) Urine Glucose (UA) (NEGATIVE) Urine Ketones (NEGATIVE) Urine Occult Blood (NEGATIVE) Urine Nitrite (NEGATIVE) Urine Bilirubin (NEGATIVE) Urine Urobilinogen (0.2-1.0) mg/dL Ur Leukocyte Esterase (NEGATIVE) Urine RBC (0-5) /HPF Urine WBC (0-5/HPF) /HPF Ur Epithelial Cells (NOT SEEN) /HPF Amorphous Sediment (NOT SEEN) /HPF Urine Bacteria (0-FEW/HPF) /HPF Urine Mucus (NOT SEEN) /LPF SARS-CoV-2 RNA (PING) (NEGATIVE) 07/16/21 07/16/21 Range/Units 06:33 07:47 WBC (5.0-10.0) 10^3/uL RBC (4.6-6.2) 10^6/uL Hgb (14.0-18.0) g/dL Hct (40.0-54.0) % MCV (80-100) fL MCH (27.0-34.0) pg MCHC (33.0-35.0) g/dL Plt Count (150-450) 10^3/uL PT (9.0-12.0) SEC INR (0.9-1.2) Sodium (136-145) mmol/L Potassium (3.5-5.1) mmol/L Chloride (98-107) mmol/L Carbon Dioxide (21-32) mmol/L Anion Gap (7-13) mEq/L BUN (7-18) mg/dL Creatinine (0.70-1.30) mg/dL Est Cr Clr Drug Dosing mL/min Estimated GFR (MDRD) Glucose (70-99) mg/dL POC Glucose 74 (70-99) mg/dL Lactic Acid (0.4-2.0) mmol/L Calcium (8.5-10.1) mg/dL Magnesium (1.8-2.4) mg/dL Iron 76 (65-175) ug/dL TIBC 96 L (250-450) ug/dL % Saturation 79.2 H (20.0-50.0) % Urine Color (YELLOW) Urine Appearance (CLEAR) Urine pH (5.0-9.0) Ur Specific [place] (1.005-1.030) Urine Protein (NEGATIVE) Urine Glucose (UA) (NEGATIVE) Urine Ketones (NEGATIVE) Urine Occult Blood (NEGATIVE) Urine Nitrite (NEGATIVE) Urine Bilirubin (NEGATIVE) Urine Urobilinogen (0.2-1.0) mg/dL Ur Leukocyte Esterase (NEGATIVE) Urine RBC (0-5) /HPF Urine WBC (0-5/HPF) /HPF Ur Epithelial Cells (NOT SEEN) /HPF Amorphous Sediment (NOT SEEN) /HPF Urine Bacteria (0-FEW/HPF) /HPF Urine Mucus (NOT SEEN) /LPF SARS-CoV-2 RNA (PING) (NEGATIVE) Eduar Results Last 24 Hours: Microbiology 07/15/21 12:25 Aerobic Blood Culture - Preliminary Blood - Venous - Iv Start NO GROWTH AFTER 1 DAY Anaerobic Blood Culture - Final 07/15/21 12:10 Aerobic Blood Culture - Preliminary Blood - Arm, Right NO GROWTH AFTER 1 DAY Anaerobic Blood Culture - Preliminary NO GROWTH AFTER 1 DAY Med Orders - Current: Current Medications Acetaminophen (Acetaminophen 325 Mg Tab) 650 mg PO Q4H PRN PRN Reason: Pain (Mild 1-3)/fever Last Admin: 07/16/21 03:30 Dose: 650 mg Documented by: Albuterol (Albuterol 0.083% 2.5 Mg/3 Ml Neb Soln) 2.5 mg INH Q4HR PRN PRN Reason: Wheezing Albuterol (Albuterol 6.7 Gm Inhaler) 0 gm INH Q4HR PRN PRN Reason: Wheezing Allopurinol (Allopurinol 100 Mg Tab) 100 mg PO DAILY ALEJANDRA Last Admin: 07/16/21 09:33 Dose: 100 mg Documented by: Bisacodyl (Bisacodyl 5 Mg Tab) 5 mg PO DAILY PRN PRN Reason: Constipation Calcitriol (Calcitriol 0.25 Mcg Cap) 0.5 mcg PO MoTuWeThFr@0800 [facility] Last Admin: 07/16/21 09:32 Dose: 0.5 mcg Documented by: Docusate Sodium (Docusate Sodium 100 Mg Cap) 100 mg PO BID PRN PRN Reason: Constipation Ferrous Sulfate (Ferrous Sulfate 325 Mg Tab) 325 mg PO DAILY [facility] Last Admin: 07/16/21 09:32 Dose: 325 mg Documented by: Levofloxacin/Dextrose 500 mg/ (Premix) 100 mls @ 100 mls/hr IV Q24H [facility] Last Infusion: 07/15/21 20:52 Dose: Infused Documented by: Potassium Chloride/Sodium Chloride (Normal Saline With 20 Meq Kcl) 1,000 mls @ 75 mls/hr IV ASDIRECTED [facility] Last Admin: 07/16/21 00:45 Dose: 75 mls/hr Documented by: Magnesium Oxide (Magnesium Oxide 250 Mg Tab) 250 mg PO BIDMEALS [facility] Last Admin: 07/16/21 09:32 Dose: 250 mg Documented by: Mometasone Furoate/Formoterol Fumar (Formoterol/Mometasone 200-5 Mcg 8.8 Gm Inhaler) 2 puff IH BID [facility] Last Admin: 07/16/21 12:06 Dose: 2 puff Documented by: Omeprazole (Omeprazole 20 Mg Cap.Cr) 20 mg PO ACBREAKFAST [facility] Last Admin: 07/16/21 06:03 Dose: 20 mg Documented by: Ondansetron HCl (Ondansetron 4 Mg/2 Ml Sdv) 4 mg IVPUSH Q6H PRN PRN Reason: Nausea/Vomiting Last Admin: 07/16/21 12:04 Dose: 4 mg Documented by: Polyethylene Glycol (Polyethylene Glycol 3350 Powder 17 Gm Packet) 17 gm PO DAILY PRN PRN Reason: Constipation Potassium Chloride (Potassium Chloride 10 Meq Tab.Er) 40 meq PO BIDMEALS [facility] Last Admin: 07/16/21 09:33 Dose: 40 meq Documented by: Prednisone (Prednisone 5 Mg Tab) 5 mg PO DAILY [facility] Last Admin: 07/16/21 09:33 Dose: 5 mg Documented by: Sodium Chloride (Sodium Chloride 0.9% 10 Ml Syringe) 10 ml FLUSH ASDIRECTED PRN PRN Reason: Keep Vein Open Last Admin: 07/15/21 13:16 Dose: 10 ml Documented by: Tamsulosin HCl (Tamsulosin 0.4 Mg Cap.Er) 0.4 mg PO DAILY [facility] Last Admin: 07/16/21 09:32 Dose: 0.4 mg Documented by: Tiotropium [place] (Tiotropium Inhaler 18 Mcg Inhalation Powder Cap Kit Of 5) 18 mcg INH DAILY [facility] Last Admin: 07/16/21 09:36 Dose: 18 mg Documented by: Verapamil HCl (Verapamil 40 Mg Tab) 40 mg PO BID [facility] Last Admin: 07/16/21 12:05 Dose: 40 mg Documented by: Warfarin Sodium (Pharmacy To Dose - Warfarin) 1 dose .XX ASDIRECTED [facility] Warfarin Sodium (Warfarin 2 Mg Tab) 4 mg PO ONETIME ONE Stop: 07/16/21 14:01 Discontinued Medications Potassium Chloride 10 meq/ (Premix) 100 mls @ 100 mls/hr IV ONETIME ONE Stop: 07/15/21 14:24 Last Admin: 07/15/21 16:28 Dose: 50 mls/hr Documented by: Magnesium Sulfate 2 gm/ Premix 50 mls @ 25 mls/hr IV ONETIME ONE Stop: 07/15/21 15:26 Last Admin: 07/15/21 16:34 Dose: 25 mls/hr Documented by: Piperacillin Sod/Tazobactam (Sod 3.375 gm/ Sodium Chloride) 100 mls @ 200 mls/hr IV Q6H [facility] Last Admin: 07/15/21 20:03 Dose: Not Given Documented by: Magnesium Sulfate 2 gm/ Premix 50 mls @ 25 mls/hr IV ONETIME ONE Stop: 07/16/21 10:59 Last Admin: 07/16/21 09:31 Dose: 25 mls/hr Documented by: Lidocaine HCl (Lidocaine 1% 30 Ml Sdv) 1 ml .XX ONETIME ONE Stop: 07/15/21 13:27 Last Admin: 07/15/21 16:30 Dose: Not Given Documented by: Non-Formulary Medication (Magnesium Sulfate [Magnesium Sulfate]) 100 mg PO DAILY [facility] Potassium Chloride (Potassium Chloride 10 Meq Tab.Er) 40 meq PO ONETIME ONE Stop: 07/15/21 13:27 Last Admin: 07/15/21 18:20 Dose: 40 meq Documented by: Potassium Chloride (Potassium Chloride 10 Meq Tab.Er) 10 meq PO BID ALEJANDRA Last Admin: 07/15/21 20:54 Dose: 10 meq Documented by: Potassium Chloride (Potassium Chloride 10 Meq Tab.Er) Confirm Administered Dose 40 meq .ROUTE .STK-MED ONE Stop: 07/15/21 18:17 Last Admin: 07/15/21 18:41 Dose: Not Given Documented by: Warfarin Sodium (Warfarin 2 Mg Tab) 4 mg PO ONETIME ONE Stop: 07/15/21 20:01 Last Admin: 07/15/21 20:55 Dose: 4 mg Documented by: - Exam Quality Assessment: Supplemental Oxygen General: Oriented, Cooperative HEENT: EOMI Lungs: Clear to Auscultation, Normal Respiratory Effort GI/Abdominal Exam: Soft, Non-Tender Extremities: Other (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 but looks clean ) Neurological: No New Focal Deficit Psy/Mental Status: Alert - Patient Data Lab Results Last 24 hrs: Laboratory Results - last 24 hr 07/15/21 07/15/21 07/15/21 Range/Units 12:51 15:49 20:53 WBC (5.0-10.0) 10^3/uL RBC (4.6-6.2) 10^6/uL Hgb (14.0-18.0) g/dL Hct (40.0-54.0) % MCV (80-100) fL MCH (27.0-34.0) pg MCHC (33.0-35.0) g/dL Plt Count (150-450) 10^3/uL PT (9.0-12.0) SEC INR (0.9-1.2) Sodium (136-145) mmol/L Potassium (3.5-5.1) mmol/L Chloride (98-107) mmol/L Carbon Dioxide (21-32) mmol/L Anion Gap (7-13) mEq/L BUN (7-18) mg/dL Creatinine (0.70-1.30) mg/dL Est Cr Clr Drug Dosing mL/min Estimated GFR (MDRD) Glucose (70-99) mg/dL POC Glucose (70-99) mg/dL Lactic Acid 1.2 (0.4-2.0) mmol/L Calcium (8.5-10.1) mg/dL Magnesium (1.8-2.4) mg/dL Iron (65-175) ug/dL TIBC (250-450) ug/dL % Saturation (20.0-50.0) % Urine Color Yellow (YELLOW) Urine Appearance Cloudy (CLEAR) Urine pH 6.5 (5.0-9.0) Ur Specific [place] 1.015 (1.005-1.030) Urine Protein Negative (NEGATIVE) Urine Glucose (UA) Negative (NEGATIVE) Urine Ketones Negative (NEGATIVE) Urine Occult Blood Moderate H (NEGATIVE) Urine Nitrite Negative (NEGATIVE) Urine Bilirubin Negative (NEGATIVE) Urine Urobilinogen 0.2 (0.2-1.0) mg/dL Ur Leukocyte Esterase Moderate H (NEGATIVE) Urine RBC 20-30 H (0-5) /HPF Urine WBC >100 H (0-5/HPF) /HPF Ur Epithelial Cells Rare (NOT SEEN) /HPF Amorphous Sediment Few (NOT SEEN) /HPF Urine Bacteria Many H (0-FEW/HPF) /HPF Urine Mucus Not seen (NOT SEEN) /LPF SARS-CoV-2 RNA (PING) Negative (NEGATIVE) 07/16/21 07/16/21 07/16/21 Range/Units 06:33 06:33 06:33 WBC 5.2 (5.0-10.0) 10^3/uL RBC 2.16 L (4.6-6.2) 10^6/uL Hgb 7.9 L D (14.0-18.0) g/dL Hct 23.7 L (40.0-54.0) % MCV 109.7 H (80-100) fL MCH 36.6 H (27.0-34.0) pg MCHC 33.3 (33.0-35.0) g/dL Plt Count 147 L (150-450) 10^3/uL PT 28.4 H (9.0-12.0) SEC INR 2.9 H (0.9-1.2) Sodium 133 L (136-145) mmol/L Potassium 3.1 L (3.5-5.1) mmol/L Chloride 94 L (98-107) mmol/L Carbon Dioxide 32 (21-32) mmol/L Anion Gap 10.1 (7-13) mEq/L BUN 69 H (7-18) mg/dL Creatinine 2.11 H (0.70-1.30) mg/dL Est Cr Clr Drug Dosing 20.07 mL/min Estimated GFR (MDRD) 30 Glucose 73 (70-99) mg/dL POC Glucose (70-99) mg/dL Lactic Acid (0.4-2.0) mmol/L Calcium 7.1 L (8.5-10.1) mg/dL Magnesium 1.5 L (1.8-2.4) mg/dL Iron (65-175) ug/dL TIBC (250-450) ug/dL % Saturation (20.0-50.0) % Urine Color (YELLOW) Urine Appearance (CLEAR) Urine pH (5.0-9.0) Ur Specific [place] (1.005-1.030) Urine Protein (NEGATIVE) Urine Glucose (UA) (NEGATIVE) Urine Ketones (NEGATIVE) Urine Occult Blood (NEGATIVE) Urine Nitrite (NEGATIVE) Urine Bilirubin (NEGATIVE) Urine Urobilinogen (0.2-1.0) mg/dL Ur Leukocyte Esterase (NEGATIVE) Urine RBC (0-5) /HPF Urine WBC (0-5/HPF) /HPF Ur Epithelial Cells (NOT SEEN) /HPF Amorphous Sediment (NOT SEEN) /HPF Urine Bacteria (0-FEW/HPF) /HPF Urine Mucus (NOT SEEN) /LPF SARS-CoV-2 RNA (PING) (NEGATIVE) 07/16/21 07/16/21 Range/Units 06:33 07:47 WBC (5.0-10.0) 10^3/uL RBC (4.6-6.2) 10^6/uL Hgb (14.0-18.0) g/dL Hct (40.0-54.0) % MCV (80-100) fL MCH (27.0-34.0) pg MCHC (33.0-35.0) g/dL Plt Count (150-450) 10^3/uL PT (9.0-12.0) SEC INR (0.9-1.2) Sodium (136-145) mmol/L Potassium (3.5-5.1) mmol/L Chloride (98-107) mmol/L Carbon Dioxide (21-32) mmol/L Anion Gap (7-13) mEq/L BUN (7-18) mg/dL Creatinine (0.70-1.30) mg/dL Est Cr Clr Drug Dosing mL/min Estimated GFR (MDRD) Glucose (70-99) mg/dL POC Glucose 74 (70-99) mg/dL Lactic Acid (0.4-2.0) mmol/L Calcium (8.5-10.1) mg/dL Magnesium (1.8-2.4) mg/dL Iron 76 (65-175) ug/dL TIBC 96 L (250-450) ug/dL % Saturation 79.2 H (20.0-50.0) % Urine Color (YELLOW) Urine Appearance (CLEAR) Urine pH (5.0-9.0) Ur Specific [place] (1.005-1.030) Urine Protein (NEGATIVE) Urine Glucose (UA) (NEGATIVE) Urine Ketones (NEGATIVE) Urine Occult Blood (NEGATIVE) Urine Nitrite (NEGATIVE) Urine Bilirubin (NEGATIVE) Urine Urobilinogen (0.2-1.0) mg/dL Ur Leukocyte Esterase (NEGATIVE) Urine RBC (0-5) /HPF Urine WBC (0-5/HPF) /HPF Ur Epithelial Cells (NOT SEEN) /HPF Amorphous Sediment (NOT SEEN) /HPF Urine Bacteria (0-FEW/HPF) /HPF Urine Mucus (NOT SEEN) /LPF SARS-CoV-2 RNA (PING) (NEGATIVE) Result Diagrams: 07/16/21 06:33 07/16/21 06:33 Eduar Results Last 24 hrs: Microbiology 07/15/21 12:25 Aerobic Blood Culture - Preliminary Blood - Venous - Iv Start NO GROWTH AFTER 1 DAY Anaerobic Blood Culture - Final 07/15/21 12:10 Aerobic Blood Culture - Preliminary Blood - Arm, Right NO GROWTH AFTER 1 DAY Anaerobic Blood Culture - Preliminary NO GROWTH AFTER 1 DAY Sepsis Event Note - Evaluation Sepsis Screening Result: No Definite Risk - Focused Exam Vital Signs: Vital Signs Temp Pulse Resp BP BP Pulse Ox 07/16/21 07:00 97.0 F 81 18 90/47 L 97 07/16/21 03:00 98.0 F 90 20 80/51 L 99 - Problem List Review Problem List Initiated/Reviewed/Updated: No - My Orders Last 24 Hours: My Active Orders 07/15/21 15:15 Albuterol [Proventil HFA] 0 gm INH Q4HR PRN Albuterol [Proventil Neb Soln] 2.5 mg INH Q4HR PRN polyethylene glycoL 3350 [MiraLAX] 17 gm PO DAILY PRN 10/10/21 15:17 RT Aerosol Therapy [RC] ASDIRECTED RT Post Treatment Assessment [RC] Click to Edit RT Pre-Treatment Assessment [RC] Click to Edit 07/15/21 15:30 Pharmacy to Dose - Warfarin 1 dose .XX ASDIRECTED 07/15/21 15:41 Consult to Occupational Therapy [OT Evaluation and Treatment] [CONS] Routine Consult to Physical Therapy [PT Evaluation and Treatment] [CONS] Routine 07/15/21 15:44 Oxygen Therapy [RC] .PRN Up With Assistance [RC] ASDIRECTED Up to Chair [RC] ASDIRECTED VTE/DVT Education [RC] Vital Signs [RC] 07,11,15,19,23 Acetaminophen [TylenoL] 650 mg PO Q4H PRN Docusate Sodium [Colace] 100 mg PO BID PRN Ondansetron [Zofran] 4 mg IVPUSH Q6H PRN bisacodyL [Dulcolax] 5 mg PO DAILY PRN Resuscitation Status Routine 07/15/21 Dinner Regular Diet [DIET] 07/15/21 18:45 Levofloxacin/Dextrose 5%-Water [Levaquin in D5W 500 MG/100 ML] 500 mg Premix B ag 1 bag IV Q24H 07/15/21 20:53 CULTURE URINE [RM] Urgent 07/15/21 21:00 Mometasone/Formoterol [Dulera 200-5 MCG] 2 puff IH BID 07/15/21 22:30 NS + KCl 20mEq/L [Normal Saline with 20 mEq KCl] 1,000 ml IV ASDIRECTED 07/16/21 06:00 Omeprazole 20 mg PO ACBREAKFAST 07/16/21 07:59 OCCULT BLOOD SCREEN [OP] Routine 07/16/21 08:00 Magnesium Oxide 250 mg PO BIDMEALS Potassium Chloride [Klor-Con 10] 40 meq PO BIDMEALS calcitrioL [Rocaltrol] 0.5 mcg PO MoTuWeThFr@0800 07/16/21 09:00 Ferrous Sulfate 325 mg PO DAILY Tamsulosin [Flomax] 0.4 mg PO DAILY Tiotropium [Spiriva HandiHaler] 18 mcg INH DAILY allopurinoL [Zyloprim] 100 mg PO DAILY predniSONE 5 mg PO DAILY 07/16/21 10:09 Dressing Change [Wound Care] [RC] DAILY 07/16/21 11:00 Verapamil [Calan] 40 mg PO BID 07/16/21 14:00 Warfarin [Coumadin] 4 mg PO ONETIME ONE 07/17/21 05:11 BASIC METABOLIC PANEL,BMP [CHEM] AM CBC W/O DIFF,HEMOGRAM [HEME] AM INR,PT,PROTHROMBIN TIME [COAG] AM MAGNESIUM [CHEM] AM 07/18/21 05:11 BASIC METABOLIC PANEL,BMP [CHEM] AM CBC W/O DIFF,HEMOGRAM [HEME] AM INR,PT,PROTHROMBIN TIME [COAG] AM MAGNESIUM [CHEM] AM 07/19/21 05:11 BASIC METABOLIC PANEL,BMP [CHEM] AM CBC W/O DIFF,HEMOGRAM [HEME] AM INR,PT,PROTHROMBIN TIME [COAG] AM MAGNESIUM [CHEM] AM 07/20/21 05:11 BASIC METABOLIC PANEL,BMP [CHEM] AM CBC W/O DIFF,HEMOGRAM [HEME] AM INR,PT,PROTHROMBIN TIME [COAG] AM MAGNESIUM [CHEM] AM 07/21/21 05:11 BASIC METABOLIC PANEL,BMP [CHEM] AM CBC W/O DIFF,HEMOGRAM [HEME] AM INR,PT,PROTHROMBIN TIME [COAG] AM MAGNESIUM [CHEM] AM 07/22/21 05:11 BASIC METABOLIC PANEL,BMP [CHEM] AM CBC W/O DIFF,HEMOGRAM [HEME] AM INR,PT,PROTHROMBIN TIME [COAG] AM MAGNESIUM [CHEM] AM - Plan Plan:: Pt was from the ER with diagnosis of Hypokalemia, Hypomagnesemia, acute on chronic obstructive pulmonary disease, Recurrent right pleural effusion, 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 Rt pleural effusion with lower lobe atelectasis vs infiltrate. Generalized weakness: PT/OT Hypokalemia, Hypomagnesemia: better . Continue with replacement. D/W Pt daughter Ms. Clancy: pt has been off/on Lasix. Acute on chronic obstructive pulmonary disease: continue with O2 and Nebs Rt pleural effusion with lower lobe atelectasis vs infiltrate: Levaquin Recurrent right pleural effusion, To resume Lasix on discharge. Acute osteomyelitis of metatarsal bone of left foot: To f/u with his neurodiagnostic technician and vascular surgeon as outpt. Chronic kidney disease. continue home medications Anemia: as Pt daughter Ms. Clancy. Pt just had Darbepoetin on for hgb of 8. will send iron studies. chronic anticoagulation. DNR/ DNI as pts daughter in ER.
[2021-07-16] MEDS ORDERED: Warfarin 2 MG Tab PO ONE (14:00)
[2021-07-16] MEDS: Levofloxacin/Dextrose 5%-Water 500 MG in Premix Bag 1 BAG IV SCH (17:44)
[2021-07-16] MEDS: Acetaminophen/HYDROcodone 325-5 MG Tab PO PRN (23:51)
[2021-07-17] MEDS: Acetaminophen/HYDROcodone 325-5 MG Tab PO PRN (03:45)
[2021-07-17] MEDS: Omeprazole 20 MG Cap.CR PO SCH (05:58)
[2021-07-17] MEDS: NS + KCl 20mEq/L 1,000 ML IV SCH (06:00)
[2021-07-17 07:16] LABS: ANION GAP 11.4 mEq/L (7-13)
[2021-07-17] MEDS: Tamsulosin 0.4 MG Cap.ER PO SCH (09:55)
[2021-07-17] MEDS: predniSONE 5 MG Tab PO SCH (09:56)
[2021-07-17] MEDS: Calcitriol 0.25 MCG Cap PO SCH (09:56)
[2021-07-17] MEDS: Allopurinol 100 MG Tab PO SCH (09:56)
[2021-07-17] MEDS: Ferrous Sulfate 325 MG Tab PO SCH (09:56)
[2021-07-17] MEDS: Potassium Chloride 10 MEQ Tab.ER PO SCH ×2 (09:56→18:09)
[2021-07-17] MEDS: Formoterol/Mometasone 200-5 MCG 8.8 GM Inhaler IH SCH ×2 (09:57→20:43)
[2021-07-17] MEDS: Tiotropium Inhaler 18 MCG Inhalation Powder Cap Kit of 5 INH SCH (09:57)
--- NOTE | 2021-07-17 11:35 | PCM.PN ---
- General Info Date of Service: 07/17/21 Functional Status: Reports: Pain Controlled, Tolerating Diet - Review of Systems General: Reports: Fever Pulmonary: Denies: Shortness of Breath Gastrointestinal: Denies: Abdominal Pain Genitourinary: Denies: Dysuria - Patient Data Vitals - Most Recent: Last Vital Signs Temp 97.6 F 07/17/21 08:00 Pulse 68 07/17/21 09:39 Resp 16 07/17/21 08:00 BP 93/55 L 07/17/21 09:39 Pulse Ox 89 L 07/17/21 09:39 Weight - Most Recent: 134 lb 9.6 oz I&O - Last 24 Hours: Intake & Output 07/16/21 07/17/21 07/17/21 22:59 06:59 14:59 Intake Total 200 300 Output Total 250 400 Balance -50 -100 Lab Results Last 24 Hours: Laboratory Results - last 24 hr 07/17/21 07/17/21 07/17/21 Range/Units 06:25 06:25 06:25 WBC 5.0 (5.0-10.0) 10^3/uL RBC 2.21 L (4.6-6.2) 10^6/uL Hgb 7.9 L (14.0-18.0) g/dL Hct 24.3 L (40.0-54.0) % MCV 110.0 H (80-100) fL MCH 35.7 H (27.0-34.0) pg MCHC 32.5 L (33.0-35.0) g/dL Plt Count 147 L (150-450) 10^3/uL PT 32.1 H (9.0-12.0) SEC INR 3.3 H (0.9-1.2) Sodium 132 L (136-145) mmol/L Potassium 4.4 (3.5-5.1) mmol/L Chloride 96 L (98-107) mmol/L Carbon Dioxide 29 (21-32) mmol/L Anion Gap 11.4 (7-13) mEq/L BUN 64 H (7-18) mg/dL Creatinine 2.07 H (0.70-1.30) mg/dL Est Cr Clr Drug Dosing 21.07 mL/min Estimated GFR (MDRD) 31 Glucose 71 (70-99) mg/dL Calcium 7.5 L (8.5-10.1) mg/dL Magnesium 1.9 (1.8-2.4) mg/dL Eduar Results Last 24 Hours: Microbiology 07/15/21 20:53 Urine Culture - Preliminary Urine, Clean Catch 07/15/21 12:25 Aerobic Blood Culture - Preliminary Blood - Venous - Iv Start NO GROWTH AFTER 1 DAY Anaerobic Blood Culture - Final 07/15/21 12:10 Aerobic Blood Culture - Preliminary Blood - Arm, Right NO GROWTH AFTER 1 DAY Anaerobic Blood Culture - Preliminary NO GROWTH AFTER 1 DAY Med Orders - Current: Current Medications Acetaminophen (Acetaminophen 325 Mg Tab) 650 mg PO Q4H PRN PRN Reason: Pain (Mild 1-3)/fever Last Admin: 07/16/21 03:30 Dose: 650 mg Documented by: Hydrocodone Bitart/Acetaminophen (Acetaminophen/Hydrocodone 325-5 Mg Tab) 1 tab PO Q4H PRN PRN Reason: Pain (severe 7-10) Last Admin: 07/17/21 03:45 Dose: 1 tab Documented by: Albuterol (Albuterol 0.083% 2.5 Mg/3 Ml Neb Soln) 2.5 mg INH Q4HR PRN PRN Reason: Wheezing Albuterol (Albuterol 6.7 Gm Inhaler) 0 gm INH Q4HR PRN PRN Reason: Wheezing Allopurinol (Allopurinol 100 Mg Tab) 100 mg PO DAILY [facility] Last Admin: 07/17/21 09:56 Dose: 100 mg Documented by: Bisacodyl (Bisacodyl 5 Mg Tab) 5 mg PO DAILY PRN PRN Reason: Constipation Calcitriol (Calcitriol 0.25 Mcg Cap) 0.5 mcg PO MoTuWeThFr@0800 [facility] Last Admin: 07/17/21 09:56 Dose: 0.5 mcg Documented by: Docusate Sodium (Docusate Sodium 100 Mg Cap) 100 mg PO BID PRN PRN Reason: Constipation Ferrous Sulfate (Ferrous Sulfate 325 Mg Tab) 325 mg PO DAILY [facility] Last Admin: 07/17/21 09:56 Dose: 325 mg Documented by: Levofloxacin/Dextrose 500 mg/ (Premix) 100 mls @ 100 mls/hr IV Q24H [facility] Last Admin: 07/16/21 17:44 Dose: 100 mls/hr Documented by: Potassium Chloride/Sodium Chloride (Normal Saline With 20 Meq Kcl) 1,000 mls @ 75 mls/hr IV ASDIRECTED [facility] Last Admin: 07/17/21 06:00 Dose: 75 mls/hr Documented by: Magnesium Oxide (Magnesium Oxide 250 Mg Tab) 250 mg PO BIDMEALS [facility] Last Admin: 07/17/21 09:56 Dose: 250 mg Documented by: Mometasone Furoate/Formoterol Fumar (Formoterol/Mometasone 200-5 Mcg 8.8 Gm Inhaler) 2 puff IH BID [facility] Last Admin: 07/17/21 09:57 Dose: 2 puff Documented by: Omeprazole (Omeprazole 20 Mg Cap.Cr) 20 mg PO ACBREAKFAST [facility] Last Admin: 07/17/21 05:58 Dose: 20 mg Documented by: Ondansetron HCl (Ondansetron 4 Mg/2 Ml Sdv) 4 mg IVPUSH Q6H PRN PRN Reason: Nausea/Vomiting Last Admin: 07/16/21 12:04 Dose: 4 mg Documented by: Polyethylene Glycol (Polyethylene Glycol 3350 Powder 17 Gm Packet) 17 gm PO DAILY PRN PRN Reason: Constipation Potassium Chloride (Potassium Chloride 10 Meq Tab.Er) 40 meq PO BIDMEALS [facility] Last Admin: 07/17/21 09:56 Dose: 40 meq Documented by: Prednisone (Prednisone 5 Mg Tab) 5 mg PO DAILY [facility] Last Admin: 07/17/21 09:56 Dose: 5 mg Documented by: Sodium Chloride (Sodium Chloride 0.9% 10 Ml Syringe) 10 ml FLUSH ASDIRECTED PRN PRN Reason: Keep Vein Open Last Admin: 07/15/21 13:16 Dose: 10 ml Documented by: Tamsulosin HCl (Tamsulosin 0.4 Mg Cap.Er) 0.4 mg PO DAILY [facility] Last Admin: 07/17/21 09:55 Dose: 0.4 mg Documented by: Tiotropium [place] (Tiotropium Inhaler 18 Mcg Inhalation Powder Cap Kit Of 5) 18 mcg INH DAILY [facility] Last Admin: 07/17/21 09:57 Dose: 18 mg Documented by: Warfarin Sodium (Pharmacy To Dose - Warfarin) 1 dose .XX ASDIRECTED [facility] Warfarin Sodium (Warfarin 2 Mg Tab) 2 mg PO ONETIME ONE Stop: 07/17/21 14:01 Discontinued Medications Potassium Chloride 10 meq/ (Premix) 100 mls @ 100 mls/hr IV ONETIME ONE Stop: 07/15/21 14:24 Last Admin: 07/15/21 16:28 Dose: 50 mls/hr Documented by: Magnesium Sulfate 2 gm/ Premix 50 mls @ 25 mls/hr IV ONETIME ONE Stop: 07/15/21 15:26 Last Admin: 07/15/21 16:34 Dose: 25 mls/hr Documented by: Piperacillin Sod/Tazobactam (Sod 3.375 gm/ Sodium Chloride) 100 mls @ 200 mls/hr IV Q6H [facility] Last Admin: 07/15/21 20:03 Dose: Not Given Documented by: Magnesium Sulfate 2 gm/ Premix 50 mls @ 25 mls/hr IV ONETIME ONE Stop: 07/16/21 10:59 Last Admin: 07/16/21 09:31 Dose: 25 mls/hr Documented by: Lidocaine HCl (Lidocaine 1% 30 Ml Sdv) 1 ml .XX ONETIME ONE Stop: 07/15/21 13:27 Last Admin: 07/15/21 16:30 Dose: Not Given Documented by: Non-Formulary Medication (Magnesium Sulfate [Magnesium Sulfate]) 100 mg PO DAILY [facility] Potassium Chloride (Potassium Chloride 10 Meq Tab.Er) 40 meq PO ONETIME ONE Stop: 07/15/21 13:27 Last Admin: 07/15/21 18:20 Dose: 40 meq Documented by: Potassium Chloride (Potassium Chloride 10 Meq Tab.Er) 10 meq PO BID [facility] Last Admin: 07/15/21 20:54 Dose: 10 meq Documented by: Potassium Chloride (Potassium Chloride 10 Meq Tab.Er) Confirm Administered Dose 40 meq .ROUTE .STK-MED ONE Stop: 07/15/21 18:17 Last Admin: 07/15/21 18:41 Dose: Not Given Documented by: Verapamil HCl (Verapamil 40 Mg Tab) 40 mg PO BID [facility] Last Admin: 07/16/21 14:14 Dose: Not Given Documented by: Verapamil HCl (Verapamil 40 Mg Tab) 20 mg PO BID ONE Stop: 07/16/21 13:34 Last Admin: 07/16/21 14:14 Dose: Not Given Documented by: Verapamil HCl (Verapamil 40 Mg Tab) 20 mg PO BID [facility] Last Admin: 07/17/21 10:00 Dose: Not Given Documented by: Warfarin Sodium (Warfarin 2 Mg Tab) 4 mg PO ONETIME ONE Stop: 07/15/21 20:01 Last Admin: 07/15/21 20:55 Dose: 4 mg Documented by: Warfarin Sodium (Warfarin 2 Mg Tab) 4 mg PO ONETIME ONE Stop: 07/16/21 14:01 Last Admin: 07/16/21 14:37 Dose: 4 mg Documented by: - Exam Quality Assessment: Supplemental Oxygen General: Alert, Oriented Neck: No JVD Lungs: Clear to Auscultation GI/Abdominal Exam: Normal Bowel Sounds, Soft Extremities: No Pedal Edema - Patient Data Lab Results Last 24 hrs: Laboratory Results - last 24 hr 07/17/21 07/17/21 07/17/21 Range/Units 06:25 06:25 06:25 WBC 5.0 (5.0-10.0) 10^3/uL RBC 2.21 L (4.6-6.2) 10^6/uL Hgb 7.9 L (14.0-18.0) g/dL Hct 24.3 L (40.0-54.0) % MCV 110.0 H (80-100) fL MCH 35.7 H (27.0-34.0) pg MCHC 32.5 L (33.0-35.0) g/dL Plt Count 147 L (150-450) 10^3/uL PT 32.1 H (9.0-12.0) SEC INR 3.3 H (0.9-1.2) Sodium 132 L (136-145) mmol/L Potassium 4.4 (3.5-5.1) mmol/L Chloride 96 L (98-107) mmol/L Carbon Dioxide 29 (21-32) mmol/L Anion Gap 11.4 (7-13) mEq/L BUN 64 H (7-18) mg/dL Creatinine 2.07 H (0.70-1.30) mg/dL Est Cr Clr Drug Dosing 21.07 mL/min Estimated GFR (MDRD) 31 Glucose 71 (70-99) mg/dL Calcium 7.5 L (8.5-10.1) mg/dL Magnesium 1.9 (1.8-2.4) mg/dL Result Diagrams: 07/17/21 06:25 07/17/21 06:25 Eduar Results Last 24 hrs: Microbiology 07/15/21 20:53 Urine Culture - Preliminary Urine, Clean Catch 07/15/21 12:25 Aerobic Blood Culture - Preliminary Blood - Venous - Iv Start NO GROWTH AFTER 1 DAY Anaerobic Blood Culture - Final 07/15/21 12:10 Aerobic Blood Culture - Preliminary Blood - Arm, Right NO GROWTH AFTER 1 DAY Anaerobic Blood Culture - Preliminary NO GROWTH AFTER 1 DAY Sepsis Event Note - Evaluation Sepsis Screening Result: No Definite Risk - Focused Exam Vital Signs: Vital Signs Temp Pulse Resp BP BP Pulse Ox 07/17/21 09:39 68 93/55 L 89 L 07/17/21 08:00 97.6 F 100 16 76/50 L 89 L 07/17/21 04:00 97.5 F 82 18 98/57 L 92 L - Problem List Review Problem List Initiated/Reviewed/Updated: No - My Orders Last 24 Hours: My Active Orders 07/16/21 14:10 CULTURE WOUND [RM] Routine 07/16/21 23:42 Acetaminophen/HYDROcodone [[place] 325-5 MG] 1 tab PO Q4H PRN 07/17/21 14:00 Warfarin [Coumadin] 2 mg PO ONETIME ONE 07/18/21 05:11 BASIC METABOLIC PANEL,BMP [CHEM] AM CBC W/O DIFF,HEMOGRAM [HEME] AM INR,PT,PROTHROMBIN TIME [COAG] AM MAGNESIUM [CHEM] AM 07/19/21 05:11 BASIC METABOLIC PANEL,BMP [CHEM] AM CBC W/O DIFF,HEMOGRAM [HEME] AM INR,PT,PROTHROMBIN TIME [COAG] AM MAGNESIUM [CHEM] AM 07/20/21 05:11 BASIC METABOLIC PANEL,BMP [CHEM] AM CBC W/O DIFF,HEMOGRAM [HEME] AM INR,PT,PROTHROMBIN TIME [COAG] AM MAGNESIUM [CHEM] AM 07/21/21 05:11 BASIC METABOLIC PANEL,BMP [CHEM] AM CBC W/O DIFF,HEMOGRAM [HEME] AM INR,PT,PROTHROMBIN TIME [COAG] AM MAGNESIUM [CHEM] AM 07/22/21 05:11 BASIC METABOLIC PANEL,BMP [CHEM] AM CBC W/O DIFF,HEMOGRAM [HEME] AM INR,PT,PROTHROMBIN TIME [COAG] AM MAGNESIUM [CHEM] AM - Plan Plan:: Pt was from the ER with diagnosis of Hypokalemia, Hypomagnesemia, acute on chronic obstructive pulmonary disease, Recurrent right pleural effusion, 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 Rt pleural effusion with lower lobe atelectasis vs infiltrate. Generalized weakness: PT/OT>> family ae considering SWING Hypokalemia, Hypomagnesemia: better . Continue with replacement. D/W Pt daughter Ms. Clancy: pt has been off/on Lasix. Acute on chronic obstructive pulmonary disease: continue with O2 and Nebs Rt pleural effusion with lower lobe atelectasis vs infiltrate: Levaquin Recurrent right pleural effusion, To resume Lasix on discharge. Acute osteomyelitis of metatarsal bone of left foot: To f/u with his pie bottomer and vascular surgeon as outpt. Chronic kidney disease. continue home medications Anemia: as Pt daughter Ms. Clancy. Pt just had Darbepoetin on for hgb of 8. will send iron studies. A fib on chronic anticoagulation. Hypotension ( SBP~ 75( improved now : DC verapamil . Add Florinef. DNR/ DNI as pts daughter in ER.
[2021-07-17] MEDS: Midodrine 2.5 MG Tab PO SCH ×2 (12:43→20:40)
[2021-07-17] MEDS ORDERED: Warfarin 2 MG Tab PO ONE (14:00)
[2021-07-17] MEDS: Levofloxacin/Dextrose 5%-Water 500 MG in Premix Bag 1 BAG IV SCH (18:08)
[2021-07-18 06:24] LABS: ANION GAP 12.4 mEq/L (7-13)
[2021-07-18] MEDS: Omeprazole 20 MG Cap.CR PO SCH (06:28)
[2021-07-18] MEDS: Calcitriol 0.25 MCG Cap PO SCH (08:26)
[2021-07-18] MEDS: Allopurinol 100 MG Tab PO SCH (08:26)
[2021-07-18] MEDS: Midodrine 2.5 MG Tab PO SCH ×3 (08:26→21:29)
[2021-07-18] MEDS: Tamsulosin 0.4 MG Cap.ER PO SCH (08:26)
[2021-07-18] MEDS: Ferrous Sulfate 325 MG Tab PO SCH (08:26)
[2021-07-18] MEDS: predniSONE 5 MG Tab PO SCH (08:27)
[2021-07-18] MEDS: Potassium Chloride 10 MEQ Tab.ER PO SCH (08:27)
[2021-07-18] MEDS: Formoterol/Mometasone 200-5 MCG 8.8 GM Inhaler IH SCH ×2 (08:30→21:28)
[2021-07-18] MEDS: Tiotropium Inhaler 18 MCG Inhalation Powder Cap Kit of 5 INH SCH (08:31)
[2021-07-18] MEDS ORDERED: Furosemide 40 MG Tab PO ONE (09:53)
--- NOTE | 2021-07-18 11:41 | PCM.DCSUM1 ---
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 Rt pleural effusion with lower lobe atelectasis vs infiltrate. Generalized weakness: PT/OT>> to SWING Hypotension SBP~ 75. verapamil was DC yesterday. increase Midodrine to TID. Per RN: no gross blood in stool or melena. Anemia: as Pt daughter Ms. Clancy. Pt just had Darbepoetin on for hgb of 8. iron studies: OK . Hypokalemia, Hypomagnesemia: better . hold K replacement. resume Lasix at 40 mg daily Acute on chronic obstructive pulmonary disease: continue with O2 and Nebs Rt pleural effusion with lower lobe atelectasis vs infiltrate: Levaquin Recurrent right pleural effusion, To resume Lasix on discharge. Acute osteomyelitis of metatarsal bone of left foot: To f/u with his sub master and vascular surgeon as outpt. Chronic kidney disease. continue home medications A fib on chronic anticoagulation. DNR/ DNI as pts daughter in ER. - Discharge Data Discharge Date: 07/18/21 Discharge Disposition: DC/Tfer to SNF 03 Condition: Fair - Referral to Home Health Primary Care Physician: PCP None - Patient Summary/Data Consults: Consultations 07/15/21 15:41 Consult to Occupational Therapy [OT Evaluation and Treatment] [CONS] Routine Consult to Physical Therapy [PT Evaluation and Treatment] [CONS] Routine - Patient Instructions Fluid Restriction: 1500 mL Activity: As Tolerated Notify Provider of: Fever, Increased Pain, Swelling and Redness, Drainage, Nausea and/or Vomiting - Discharge Plan *PRESCRIPTION DRUG MONITORING PROGRAM REVIEWED*: No Home Medications: Home Meds Albuterol [Proventil Neb Soln] 2.5 mg INH Q4HR PRN 04/30/18 [History] Albuterol [Ventolin HFA] 2 puff INH Q4HR PRN 04/30/18 [History] Fluticasone/Salmeterol [Advair 500-50] 1 puff INH BID 04/30/18 [History] Tamsulosin HCl 0.4 mg PO DAILY 04/30/18 [History] Tiotropium [Spiriva HandiHaler] 18 mcg INH DAILY 04/30/18 [History] allopurinoL [Zyloprim] 100 mg PO DAILY 04/30/18 [History] Calcitriol 0.5 mcg PO .MTUWTHF 07/15/21 [History] Ferrous Sulfate 325 mg PO DAILY 07/15/21 [History] Finasteride [Proscar] 5 mg PO DAILY 07/15/21 [History] Omeprazole 20 mg PO ACBREAKFAST 07/15/21 [History] Warfarin Sodium [Jantoven] 4 mg PO .4DAYSWEEKLY 07/15/21 [History] polyethylene glycoL 3350 [MiraLAX] 17 gm PO DAILY PRN 07/15/21 [History] predniSONE [Prednisone] 5 mg PO DAILY 07/15/21 [History] Acetaminophen [Acetaminophen Extra Strength] 500 mg PO Q6H PRN 07/16/21 [History] Albuterol/Ipratropium [DuoNeb 3.0-0.5 MG/3 ML] 3 ml IH TID 07/16/21 [History] Cyanocobalamin (Vitamin B-12) [Cyanocobalamin Injection] 1,000 mcg IM .MONTHLY 07/16/21 [History] Furosemide 40 mg PO DAILY 07/16/21 [History] Magnesium Oxide 400 mg PO DAILY 07/16/21 [History] Potassium Chloride 20 meq PO BIDMEALS 07/16/21 [History] Verapamil HCl 40 mg PO BID 07/16/21 [History] Warfarin Sodium [Jantoven] 6 mg PO .3DAYSWEEKLY 07/16/21 [History] metOLazone [Metolazone] 2.5 mg PO DAILY 07/16/21 [History] Oxygen Therapy Mode: Nasal Cannula Forms: ED Department Discharge Referrals: PCP,None [Primary Care Provider] - - Discharge Summary/Plan Comment DC Time >30 min.: Yes Total # of Minutes for Discharge Time: 30 Min - General Info Date of Service: 07/18/21 Functional Status: Reports: Pain Controlled, Tolerating Diet - Review of Systems General: Denies: Fever Pulmonary: Denies: Shortness of Breath Cardiovascular: Denies: Chest Pain Gastrointestinal: Denies: Abdominal Pain Neurological: Denies: Confusion Psychiatric: Denies: Confusion - Patient Data Vitals - Most Recent: Last Vital Signs Temp 97.8 F 07/18/21 07:33 Pulse 87 07/18/21 07:33 Resp 20 07/18/21 07:33 BP 107/47 L 07/18/21 07:33 Pulse Ox 91 L 07/18/21 07:33 Weight - Most Recent: 138 lb 9.6 oz I&O - Last 24 hours: Intake & Output 07/17/21 07/18/21 07/18/21 22:59 06:59 14:59 Intake Total 120 120 300 Output Total 125 325 Balance -5 -205 300 Lab Results - Last 24 hrs: Laboratory Results - last 24 hr 07/18/21 07/18/21 07/18/21 Range/Units 05:48 05:48 05:48 WBC 8.2 (5.0-10.0) 10^3/uL RBC 2.35 L (4.6-6.2) 10^6/uL Hgb 8.5 L (14.0-18.0) g/dL Hct 26.1 L (40.0-54.0) % MCV 111.1 H (80-100) fL MCH 36.2 H (27.0-34.0) pg MCHC 32.6 L (33.0-35.0) g/dL Plt Count 154 (150-450) 10^3/uL PT 35.3 H (9.0-12.0) SEC INR 3.6 H (0.9-1.2) Sodium 133 L (136-145) mmol/L Potassium 5.4 H (3.5-5.1) mmol/L Chloride 99 (98-107) mmol/L Carbon Dioxide 27 (21-32) mmol/L Anion Gap 12.4 (7-13) mEq/L BUN 64 H (7-18) mg/dL Creatinine 2.08 H (0.70-1.30) mg/dL Est Cr Clr Drug Dosing 21.61 mL/min Estimated GFR (MDRD) 30 Glucose 74 (70-99) mg/dL Calcium 7.7 L (8.5-10.1) mg/dL Magnesium 1.9 (1.8-2.4) mg/dL [facility]ADIA Results - Last 24 hrs: Microbiology 07/18/21 09:35 Stool Occult Blood (FADIA) - Final Stool / Feces 07/16/21 14:10 Wound Culture - Preliminary Toe, Left - Left Little 07/15/21 20:53 Urine Culture - Final Urine, Clean Catch Staphylococcus Epidermidis 07/15/21 12:25 Aerobic Blood Culture - Preliminary Blood - Venous - Iv Start NO GROWTH AFTER 2 DAYS Anaerobic Blood Culture - Final 07/15/21 12:10 Aerobic Blood Culture - Preliminary Blood - Arm, Right NO GROWTH AFTER 2 DAYS Anaerobic Blood Culture - Preliminary NO GROWTH AFTER 2 DAYS Med Orders - Current: Current Medications Acetaminophen (Acetaminophen 325 Mg Tab) 650 mg PO Q4H PRN PRN Reason: Pain (Mild 1-3)/fever Last Admin: 07/16/21 03:30 Dose: 650 mg Documented by: Hydrocodone Bitart/Acetaminophen (Acetaminophen/Hydrocodone 325-5 Mg Tab) 1 tab PO Q4H PRN PRN Reason: Pain (severe 7-10) Last Admin: 07/17/21 03:45 Dose: 1 tab Documented by: Albuterol (Albuterol 0.083% 2.5 Mg/3 Ml Neb Soln) 2.5 mg INH Q4HR PRN PRN Reason: Wheezing Albuterol (Albuterol 6.7 Gm Inhaler) 0 gm INH Q4HR PRN PRN Reason: Wheezing Allopurinol (Allopurinol 100 Mg Tab) 100 mg PO DAILY [facility] Last Admin: 07/18/21 08:26 Dose: 100 mg Documented by: Bisacodyl (Bisacodyl 5 Mg Tab) 5 mg PO DAILY PRN PRN Reason: Constipation Calcitriol (Calcitriol 0.25 Mcg Cap) 0.5 mcg PO MoTuWeThFr@0800 [facility] Last Admin: 07/18/21 08:26 Dose: 0.5 mcg Documented by: Docusate Sodium (Docusate Sodium 100 Mg Cap) 100 mg PO BID PRN PRN Reason: Constipation Ferrous Sulfate (Ferrous Sulfate 325 Mg Tab) 325 mg PO DAILY [facility] Last Admin: 07/18/21 08:26 Dose: 325 mg Documented by: Levofloxacin/Dextrose 500 mg/ (Premix) 100 mls @ 100 mls/hr IV Q24H [facility] Last Admin: 07/17/21 18:08 Dose: 100 mls/hr Documented by: Magnesium Oxide (Magnesium Oxide 250 Mg Tab) 250 mg PO BIDMEALS [facility] Last Admin: 07/18/21 08:26 Dose: 250 mg Documented by: Midodrine (Midodrine 2.5 Mg Tab) 2.5 mg PO BID [facility] Last Admin: 07/18/21 08:26 Dose: 2.5 mg Documented by: Mometasone Furoate/Formoterol Fumar (Formoterol/Mometasone 200-5 Mcg 8.8 Gm Inhaler) 2 puff IH BID [facility] Last Admin: 07/18/21 08:30 Dose: 2 puff Documented by: No Warfarin (Today ) 0 each .XX ONETIME ONE Stop: 07/18/21 14:01 Omeprazole (Omeprazole 20 Mg Cap.Cr) 20 mg PO ACBREAKFAST [facility] Last Admin: 07/18/21 06:28 Dose: 20 mg Documented by: Ondansetron HCl (Ondansetron 4 Mg/2 Ml Sdv) 4 mg IVPUSH Q6H PRN PRN Reason: Nausea/Vomiting Last Admin: 07/16/21 12:04 Dose: 4 mg Documented by: Polyethylene Glycol (Polyethylene Glycol 3350 Powder 17 Gm Packet) 17 gm PO DAILY PRN PRN Reason: Constipation Prednisone (Prednisone 5 Mg Tab) 5 mg PO DAILY [facility] Last Admin: 07/18/21 08:27 Dose: 5 mg Documented by: Sodium Chloride (Sodium Chloride 0.9% 10 Ml Syringe) 10 ml FLUSH ASDIRECTED PRN PRN Reason: Keep Vein Open Last Admin: 07/15/21 13:16 Dose: 10 ml Documented by: Tamsulosin HCl (Tamsulosin 0.4 Mg Cap.Er) 0.4 mg PO DAILY [facility] Last Admin: 07/18/21 08:26 Dose: 0.4 mg Documented by: Tiotropium [place] (Tiotropium Inhaler 18 Mcg Inhalation Powder Cap Kit Of 5) 18 mcg INH DAILY [facility] Last Admin: 07/18/21 08:31 Dose: 18 mcg Documented by: Warfarin Sodium (Pharmacy To Dose - Warfarin) 1 dose .XX ASDIRECTED [facility] Discontinued Medications Furosemide (Furosemide 40 Mg Tab) 40 mg PO ONETIME ONE Stop: 07/18/21 09:54 Last Admin: 07/18/21 11:16 Dose: 40 mg Documented by: Potassium Chloride 10 meq/ (Premix) 100 mls @ 100 mls/hr IV ONETIME ONE Stop: 07/15/21 14:24 Last Admin: 07/15/21 16:28 Dose: 50 mls/hr Documented by: Magnesium Sulfate 2 gm/ Premix 50 mls @ 25 mls/hr IV ONETIME ONE Stop: 07/15/21 15:26 Last Admin: 07/15/21 16:34 Dose: 25 mls/hr Documented by: Piperacillin Sod/Tazobactam (Sod 3.375 gm/ Sodium Chloride) 100 mls @ 200 mls/hr IV Q6H [facility] Last Admin: 07/15/21 20:03 Dose: Not Given Documented by: Potassium Chloride/Sodium Chloride (Normal Saline With 20 Meq Kcl) 1,000 mls @ 75 mls/hr IV ASDIRECTED [facility] Last Admin: 07/17/21 06:00 Dose: 75 mls/hr Documented by: Magnesium Sulfate 2 gm/ Premix 50 mls @ 25 mls/hr IV ONETIME ONE Stop: 07/16/21 10:59 Last Admin: 07/16/21 09:31 Dose: 25 mls/hr Documented by: Lidocaine HCl (Lidocaine 1% 30 Ml Sdv) 1 ml .XX ONETIME ONE Stop: 07/15/21 13:27 Last Admin: 07/15/21 16:30 Dose: Not Given Documented by: Non-Formulary Medication (Magnesium Sulfate [Magnesium Sulfate]) 100 mg PO DAILY [facility] Potassium Chloride (Potassium Chloride 10 Meq Tab.Er) 40 meq PO ONETIME ONE Stop: 07/15/21 13:27 Last Admin: 07/15/21 18:20 Dose: 40 meq Documented by: Potassium Chloride (Potassium Chloride 10 Meq Tab.Er) 10 meq PO BID [facility] Last Admin: 07/15/21 20:54 Dose: 10 meq Documented by: Potassium Chloride (Potassium Chloride 10 Meq Tab.Er) Confirm Administered Dose 40 meq .ROUTE .STK-MED ONE Stop: 07/15/21 18:17 Last Admin: 07/15/21 18:41 Dose: Not Given Documented by: Potassium Chloride (Potassium Chloride 10 Meq Tab.Er) 40 meq PO BIDMEALS [facility] Last Admin: 07/18/21 08:27 Dose: Not Given Documented by: Verapamil HCl (Verapamil 40 Mg Tab) 40 mg PO BID [facility] Last Admin: 07/16/21 14:14 Dose: Not Given Documented by: Verapamil HCl (Verapamil 40 Mg Tab) 20 mg PO BID ONE Stop: 07/16/21 13:34 Last Admin: 07/16/21 14:14 Dose: Not Given Documented by: Verapamil HCl (Verapamil 40 Mg Tab) 20 mg PO BID [facility] Last Admin: 07/17/21 10:00 Dose: Not Given Documented by: Warfarin Sodium (Warfarin 2 Mg Tab) 4 mg PO ONETIME ONE Stop: 07/15/21 20:01 Last Admin: 07/15/21 20:55 Dose: 4 mg Documented by: Warfarin Sodium (Warfarin 2 Mg Tab) 4 mg PO ONETIME ONE Stop: 07/16/21 14:01 Last Admin: 07/16/21 14:37 Dose: 4 mg Documented by: Warfarin Sodium (Warfarin 2 Mg Tab) 2 mg PO ONETIME ONE Stop: 07/17/21 14:01 Last Admin: 07/17/21 15:47 Dose: 2 mg Documented by: - Exam Quality Assessment: Reports: Supplemental Oxygen General: Reports: Alert, Oriented HEENT: Reports: EOMI Neck: Reports: Supple Lungs: Reports: Clear to Auscultation, Normal Respiratory Effort Cardiovascular: Reports: Irregular Rhythm GI/Abdominal Exam: Soft, Non-Tender Extremities: Normal Inspection, Pedal Edema Skin: Reports: Dry Neurological: Reports: No New Focal Deficit Psy/Mental Status: Reports: Alert
[2021-07-18] MEDS ORDERED: Furosemide 40 MG Tab PO SCH (12:00)
[2021-07-18] MEDS ORDERED: Ciprofloxacin 500 MG Tab PO SCH (13:15)
[2021-07-18] MEDS: [UNRECOGNIZED DRUG - OTHER] TOP SCH ×2 (17:46→21:31)
[2021-07-18] MEDS: LIDOCAINE TOP SCH ×2 (17:46→21:31)
[2021-07-18] MEDS: Levofloxacin/Dextrose 5%-Water 500 MG in Premix Bag 1 BAG IV SCH (17:59)
[2021-07-18] MEDS: Acetaminophen 325 MG Tab PO PRN (19:37)
[2021-07-19] MEDS: Acetaminophen/HYDROcodone 325-5 MG Tab PO PRN ×2 (00:08→13:26)
[2021-07-19] MEDS: Omeprazole 20 MG Cap.CR PO SCH (05:19)
[2021-07-19] MEDS: Formoterol/Mometasone 200-5 MCG 8.8 GM Inhaler IH SCH (08:06)
[2021-07-19] MEDS: Ferrous Sulfate 325 MG Tab PO SCH (08:06)
[2021-07-19] MEDS: Calcitriol 0.25 MCG Cap PO SCH (08:06)
[2021-07-19] MEDS: Allopurinol 100 MG Tab PO SCH (08:07)
[2021-07-19] MEDS: Tamsulosin 0.4 MG Cap.ER PO SCH (08:07)
[2021-07-19] MEDS: Midodrine 2.5 MG Tab PO SCH ×2 (08:07→13:26)
[2021-07-19] MEDS: predniSONE 5 MG Tab PO SCH (08:07)
[2021-07-19] MEDS: Tiotropium Inhaler 18 MCG Inhalation Powder Cap Kit of 5 INH SCH (08:11)
[2021-07-19] MEDS: LIDOCAINE TOP SCH ×2 (08:12→12:07)
[2021-07-19] MEDS: [UNRECOGNIZED DRUG - OTHER] TOP SCH ×2 (08:12→12:07)
[2021-07-19] MEDS ORDERED: Furosemide 20 MG Tab PO SCH (09:00)
--- NOTE | 2021-07-19 11:03 | PCM.DCSUM1 ---
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 Rt pleural effusion with lower lobe atelectasis vs infiltrate. Generalized weakness: Pt is very frail at his baseline. For PT/OT>> to SWING Hypotension SBP~ 90. verapamil was DCed. Pt was started Midodrine to TID. Per RN: no gross blood in stool or melena and Occult stool was neg. Anemia: as Pt daughter Ms. Clancy. Pt just had Darbepoetin on for hgb of 8. iron studies: OK . to continue weekly Hypokalemia, Hypomagnesemia: better . hold K replacement. resume Lasix at 20 mg daily Acute on chronic obstructive pulmonary disease: continue with O2 and Nebs Rt pleural effusion with lower lobe atelectasis vs infiltrate: Lasix + Levaquin Recurrent right pleural effusion, To resume Lasix on discharge. Acute osteomyelitis of metatarsal bone of left foot: To f/u with his truck cleaner and vascular surgeon as outpt. Chronic kidney disease. continue home medications A fib on chronic anticoagulation. DNR/ DNI. - Discharge Data Discharge Date: 07/19/21 Discharge Disposition: DC/Tfer W/I Hosp To Swing [facility] Condition: Fair - Referral to Home Health Primary Care Physician: PCP None - Patient Summary/Data Consults: Consultations 07/15/21 15:41 Consult to Occupational Therapy [OT Evaluation and Treatment] [CONS] Routine Consult to Physical Therapy [PT Evaluation and Treatment] [CONS] Routine - Patient Instructions Fluid Restriction: 1500 mL Activity: As Tolerated Notify Provider of: Fever, Increased Pain, Swelling and Redness, Drainage, Nausea and/or Vomiting - Discharge Plan *PRESCRIPTION DRUG MONITORING PROGRAM REVIEWED*: No Home Medications: Home Meds RX: Albuterol [Proventil Neb Soln] 2.5 mg INH Q4HR PRN 04/30/18 [History] RX: Albuterol [Ventolin HFA] 2 puff INH Q4HR PRN 04/30/18 [History] RX: Fluticasone/Salmeterol [Advair 500-50] 1 puff INH BID 04/30/18 [History] RX: Tamsulosin HCl 0.4 mg PO DAILY 04/30/18 [History] RX: Tiotropium [Spiriva HandiHaler] 18 mcg INH DAILY 04/30/18 [History] RX: allopurinoL [Zyloprim] 100 mg PO DAILY 04/30/18 [History] Finasteride [Proscar] 5 mg PO DAILY 07/15/21 [History] RX: Calcitriol 0.5 mcg PO .MTUWTHF 07/15/21 [History] RX: Ferrous Sulfate 325 mg PO DAILY 07/15/21 [History] RX: Omeprazole 20 mg PO ACBREAKFAST 07/15/21 [History] Warfarin Sodium [Jantoven] 4 mg PO .4DAYSWEEKLY 07/15/21 [History] polyethylene glycoL 3350 [MiraLAX] 17 gm PO DAILY PRN 07/15/21 [History] predniSONE [Prednisone] 5 mg PO DAILY 07/15/21 [History] Acetaminophen [Acetaminophen Extra Strength] 500 mg PO Q6H PRN 07/16/21 [History] Albuterol/Ipratropium [DuoNeb 3.0-0.5 MG/3 ML] 3 ml IH TID 07/16/21 [History] RX: Cyanocobalamin (Vitamin B-12) [Cyanocobalamin Injection] 1,000 mcg IM .MONTHLY 07/16/21 [History] RX: Furosemide 40 mg PO DAILY 07/16/21 [History] RX: Magnesium Oxide 400 mg PO DAILY 07/16/21 [History] RX: Potassium Chloride 20 meq PO BIDMEALS 07/16/21 [History] RX: Verapamil HCl 40 mg PO BID 07/16/21 [History] Warfarin Sodium [Jantoven] 6 mg PO .3DAYSWEEKLY 07/16/21 [History] metOLazone [Metolazone] 2.5 mg PO DAILY 07/16/21 [History] Lidocaine HCl/Benzyl Alcohol [Salonpas Lidocain Pls 4-10% Cr] 85 gm TP QID 07/18/21 [History] Oxygen Therapy Mode: Nasal Cannula Forms: ED Department Discharge Referrals: PCP,None [Primary Care Provider] - - Discharge Summary/Plan Comment DC Time >30 min.: Yes Total # of Minutes for Discharge Time: 35 min - General Info Date of Service: 07/19/21 Subjective Update: feeling Ok Functional Status: Reports: Pain Controlled, Tolerating Diet - Review of Systems General: Denies: Fever Pulmonary: Denies: Shortness of Breath Gastrointestinal: Denies: Abdominal Pain Genitourinary: Denies: Dysuria Neurological: Denies: Confusion Psychiatric: Denies: Confusion - Patient Data Vitals - Most Recent: Last Vital Signs Temp 97.5 F 07/19/21 08:00 Pulse 88 07/19/21 08:00 Resp 20 07/19/21 08:00 BP 102/52 L 07/19/21 08:00 Pulse Ox 94 L 07/19/21 08:00 Weight - Most Recent: 138 lb I&O - Last 24 hours: Intake & Output 07/18/21 07/19/21 07/19/21 22:59 06:59 14:59 Intake Total 750 400 360 Output Total 150 400 Balance 600 0 360 Lab Results - Last 24 hrs: Laboratory Results - last 24 hr 07/19/21 07/19/21 07/19/21 Range/Units 05:50 05:50 05:50 WBC 4.3 L (5.0-10.0) 10^3/uL RBC 2.12 L (4.6-6.2) 10^6/uL Hgb 7.8 L (14.0-18.0) g/dL Hct 23.6 L (40.0-54.0) % MCV 111.3 H (80-100) fL MCH 36.8 H (27.0-34.0) pg MCHC 33.1 (33.0-35.0) g/dL Plt Count 119 L (150-450) 10^3/uL PT 35.5 H (9.0-12.0) SEC INR 3.6 H (0.9-1.2) Sodium 133 L (136-145) mmol/L Potassium 4.0 (3.5-5.1) mmol/L Chloride 99 (98-107) mmol/L Carbon Dioxide 29 (21-32) mmol/L Anion Gap 9.0 (7-13) mEq/L BUN 68 H (7-18) mg/dL Creatinine 2.28 H (0.70-1.30) mg/dL Est Cr Clr Drug Dosing 20.30 mL/min Estimated GFR (MDRD) 27 Glucose 78 (70-99) mg/dL Calcium 8.0 L (8.5-10.1) mg/dL Magnesium 1.9 (1.8-2.4) mg/dL FADIA Results - Last 24 hrs: Microbiology 07/18/21 16:26 Urine Culture - Preliminary Urine, Clean Catch NO GROWTH AFTER 1 DAY 07/16/21 14:10 Wound Culture - Final Toe, Left - Left Little 07/15/21 12:25 Aerobic Blood Culture - Preliminary Blood - Venous - Iv Start NO GROWTH AFTER 3 DAYS Anaerobic Blood Culture - Final 07/15/21 12:10 Aerobic Blood Culture - Preliminary Blood - Arm, Right NO GROWTH AFTER 3 DAYS Anaerobic Blood Culture - Preliminary NO GROWTH AFTER 3 DAYS 07/18/21 09:35 Stool Occult Blood (FADIA) - Final Stool / Feces 07/15/21 20:53 Urine Culture - Final Urine, Clean Catch Staphylococcus Epidermidis Med Orders - Current: Current Medications Acetaminophen (Acetaminophen 325 Mg Tab) 650 mg PO Q4H PRN PRN Reason: Pain (Mild 1-3)/fever Last Admin: 07/18/21 19:37 Dose: 650 mg Documented by: Hydrocodone Bitart/Acetaminophen (Acetaminophen/Hydrocodone 325-5 Mg Tab) 1 tab PO Q4H PRN PRN Reason: Pain (severe 7-10) Last Admin: 07/19/21 00:08 Dose: 1 tab Documented by: Albuterol (Albuterol 0.083% 2.5 Mg/3 Ml Neb Soln) 2.5 mg INH Q4HR PRN PRN Reason: Wheezing Albuterol (Albuterol 6.7 Gm Inhaler) 0 gm INH Q4HR PRN PRN Reason: Wheezing Allopurinol (Allopurinol 100 Mg Tab) 100 mg PO DAILY [facility] Last Admin: 07/19/21 08:07 Dose: 100 mg Documented by: Bisacodyl (Bisacodyl 5 Mg Tab) 5 mg PO DAILY PRN PRN Reason: Constipation Calcitriol (Calcitriol 0.25 Mcg Cap) 0.5 mcg PO MoTuWeThFr@0800 [facility] Last Admin: 07/19/21 08:06 Dose: 0.5 mcg Documented by: Docusate Sodium (Docusate Sodium 100 Mg Cap) 100 mg PO BID PRN PRN Reason: Constipation Ferrous Sulfate (Ferrous Sulfate 325 Mg Tab) 325 mg PO DAILY [facility] Last Admin: 07/19/21 08:06 Dose: 325 mg Documented by: Furosemide (Furosemide 20 Mg Tab) 20 mg PO DAILY [facility] Last Admin: 07/19/21 08:07 Dose: 20 mg Documented by: Levofloxacin/Dextrose 500 mg/ (Premix) 100 mls @ 100 mls/hr IV Q24H [facility] Last Admin: 07/18/21 17:59 Dose: 100 mls/hr Documented by: Magnesium Oxide (Magnesium Oxide 250 Mg Tab) 250 mg PO BIDMEALS [facility] Last Admin: 07/19/21 08:06 Dose: 250 mg Documented by: Midodrine (Midodrine 2.5 Mg Tab) 2.5 mg PO TID [facility] Last Admin: 07/19/21 08:07 Dose: 2.5 mg Documented by: Mometasone Furoate/Formoterol Fumar (Formoterol/Mometasone 200-5 Mcg 8.8 Gm Inhaler) 2 puff IH BID [facility] Last Admin: 07/19/21 08:06 Dose: 2 puff Documented by: No Warfarin (Today ) 0 each .XX ONETIME ONE Stop: 07/19/21 14:01 Omeprazole (Omeprazole 20 Mg Cap.Cr) 20 mg PO ACBREAKFAST [facility] Last Admin: 07/19/21 05:19 Dose: 20 mg Documented by: Ondansetron HCl (Ondansetron 4 Mg/2 Ml Sdv) 4 mg IVPUSH Q6H PRN PRN Reason: Nausea/Vomiting Last Admin: 07/16/21 12:04 Dose: 4 mg Documented by: Salonpas Lidocaine (Plus- 4% Lidocaine) 0 each TOP QID [facility] Last Admin: 07/19/21 08:12 Dose: 1 each Documented by: Polyethylene Glycol (Polyethylene Glycol 3350 Powder 17 Gm Packet) 17 gm PO DAILY PRN PRN Reason: Constipation Prednisone (Prednisone 5 Mg Tab) 5 mg PO DAILY [facility] Last Admin: 07/19/21 08:07 Dose: 5 mg Documented by: Sodium Chloride (Sodium Chloride 0.9% 10 Ml Syringe) 10 ml FLUSH ASDIRECTED PRN PRN Reason: Keep Vein Open Last Admin: 07/15/21 13:16 Dose: 10 ml Documented by: Tamsulosin HCl (Tamsulosin 0.4 Mg Cap.Er) 0.4 mg PO DAILY [facility] Last Admin: 07/19/21 08:07 Dose: 0.4 mg Documented by: Tiotropium [place] (Tiotropium Inhaler 18 Mcg Inhalation Powder Cap Kit Of 5) 18 mcg INH DAILY [facility] Last Admin: 07/19/21 08:11 Dose: 18 mcg Documented by: Warfarin Sodium (Pharmacy To Dose - Warfarin) 1 dose .XX ASDIRECTED [facility] Discontinued Medications Ciprofloxacin (Ciprofloxacin 500 Mg Tab) 500 mg PO BID [facility] Furosemide (Furosemide 40 Mg Tab) 40 mg PO ONETIME ONE Stop: 07/18/21 09:54 Last Admin: 07/18/21 11:16 Dose: 40 mg Documented by: Furosemide (Furosemide 40 Mg Tab) 40 mg PO DAILY [facility] Potassium Chloride 10 meq/ (Premix) 100 mls @ 100 mls/hr IV ONETIME ONE Stop: 07/15/21 14:24 Last Admin: 07/15/21 16:28 Dose: 50 mls/hr Documented by: Magnesium Sulfate 2 gm/ Premix 50 mls @ 25 mls/hr IV ONETIME ONE Stop: 07/15/21 15:26 Last Admin: 07/15/21 16:34 Dose: 25 mls/hr Documented by: Piperacillin Sod/Tazobactam (Sod 3.375 gm/ Sodium Chloride) 100 mls @ 200 mls/hr IV Q6H [facility] Last Admin: 07/15/21 20:03 Dose: Not Given Documented by: Potassium Chloride/Sodium Chloride (Normal Saline With 20 Meq Kcl) 1,000 mls @ 75 mls/hr IV ASDIRECTED [facility] Last Admin: 07/17/21 06:00 Dose: 75 mls/hr Documented by: Magnesium Sulfate 2 gm/ Premix 50 mls @ 25 mls/hr IV ONETIME ONE Stop: 07/16/21 10:59 Last Admin: 07/16/21 09:31 Dose: 25 mls/hr Documented by: Lidocaine HCl (Lidocaine 1% 30 Ml Sdv) 1 ml .XX ONETIME ONE Stop: 07/15/21 13:27 Last Admin: 07/15/21 16:30 Dose: Not Given Documented by: Midodrine (Midodrine 2.5 Mg Tab) 2.5 mg PO BID [facility] Last Admin: 07/18/21 08:26 Dose: 2.5 mg Documented by: Non-Formulary Medication (Magnesium Sulfate [Magnesium Sulfate]) 100 mg PO DAILY [facility] No Warfarin (Today ) 0 each .XX ONETIME ONE Stop: 07/18/21 14:01 Last Admin: 07/18/21 13:59 Dose: Not Given Documented by: Potassium Chloride (Potassium Chloride 10 Meq Tab.Er) 40 meq PO ONETIME ONE Stop: 07/15/21 13:27 Last Admin: 07/15/21 18:20 Dose: 40 meq Documented by: Potassium Chloride (Potassium Chloride 10 Meq Tab.Er) 10 meq PO BID [facility] Last Admin: 07/15/21 20:54 Dose: 10 meq Documented by: Potassium Chloride (Potassium Chloride 10 Meq Tab.Er) Confirm Administered Dose 40 meq .ROUTE .STK-MED ONE Stop: 07/15/21 18:17 Last Admin: 07/15/21 18:41 Dose: Not Given Documented by: Potassium Chloride (Potassium Chloride 10 Meq Tab.Er) 40 meq PO BIDMEALS [facility] Last Admin: 07/18/21 08:27 Dose: Not Given Documented by: Verapamil HCl (Verapamil 40 Mg Tab) 40 mg PO BID [facility] Last Admin: 07/16/21 14:14 Dose: Not Given Documented by: Verapamil HCl (Verapamil 40 Mg Tab) 20 mg PO BID ONE Stop: 07/16/21 13:34 Last Admin: 07/16/21 14:14 Dose: Not Given Documented by: Verapamil HCl (Verapamil 40 Mg Tab) 20 mg PO BID [facility] Last Admin: 07/17/21 10:00 Dose: Not Given Documented by: Warfarin Sodium (Warfarin 2 Mg Tab) 4 mg PO ONETIME ONE Stop: 07/15/21 20:01 Last Admin: 07/15/21 20:55 Dose: 4 mg Documented by: Warfarin Sodium (Warfarin 2 Mg Tab) 4 mg PO ONETIME ONE Stop: 07/16/21 14:01 Last Admin: 07/16/21 14:37 Dose: 4 mg Documented by: Warfarin Sodium (Warfarin 2 Mg Tab) 2 mg PO ONETIME ONE Stop: 07/17/21 14:01 Last Admin: 07/17/21 15:47 Dose: 2 mg Documented by: - Exam Quality Assessment: Reports: Supplemental Oxygen General: Reports: Alert HEENT: Reports: EOMI Neck: Reports: No JVD Lungs: Reports: Clear to Auscultation, Normal Respiratory Effort Cardiovascular: Reports: Regular Rhythm GI/Abdominal Exam: Soft Back Exam: Reports: Normal Inspection Extremities: Pedal Edema Neurological: Reports: No New Focal Deficit, Normal Speech Psy/Mental Status: Reports: Alert
[2021-07-19] MEDS ORDERED: DARBEPOETIN ALFA SUBCUT ONE (12:00)
--- NOTE | 2021-07-19 13:52 | PCM.SN.2 ---
- Free Text/Narrative Note: Addendum to the DC note of Jul 18. Discharged was postponed till today. Time Documentation
== END 2021-07-19 14:51 | disposition swing bed (61) | DRG 189 ==
LOC: DL.ED 11:19 → UNDOADMIN 13:43 → DL.MS 13:43 → UNDODISIN 07-19 14:51
PROVIDERS: ADMIT Internal Medicine; ATTEND Internal Medicine
DX: J96.21 Acute and chronic respiratory failure with hypoxia (principal); J90 Pleural effusion, not elsewhere classified; M86.172 Other acute osteomyelitis, left ankle and foot; I48.20 Chronic atrial fibrillation, unspecified; I13.0 Hypertensive heart and chronic kidney disease with heart failure and stage 1 through stage 4 chronic kidney disease, or unspecified chronic kidney disease; N18.4 Chronic kidney disease, stage 4 (severe); J43.9 Emphysema, unspecified; E87.6 Hypokalemia; Z66 Do not resuscitate; Z20.822 Contact with and (suspected) exposure to COVID-19; M10.9 Gout, unspecified; E83.42 Hypomagnesemia; I95.9 Hypotension, unspecified; I50.9 Heart failure, unspecified; I73.9 Peripheral vascular disease, unspecified; H91.93 Unspecified hearing loss, bilateral; K21.9 Gastro-esophageal reflux disease without esophagitis; M19.90 Unspecified osteoarthritis, unspecified site; I25.10 Atherosclerotic heart disease of native coronary artery without angina pectoris; Z96.641 Presence of right artificial hip joint; D50.9 Iron deficiency anemia, unspecified; D63.1 Anemia in chronic kidney disease; Z79.01 Long term (current) use of anticoagulants; Z28.82 Immunization not carried out because of caregiver refusal; Z79.52 Long term (current) use of systemic steroids; Z79.899 Other long term (current) drug therapy; Z87.891 Personal history of nicotine dependence; Z87.442 Personal history of urinary calculi; Z87.01 Personal history of pneumonia (recurrent); Z88.1 Allergy status to other antibiotic agents; Z88.0 Allergy status to penicillin; Z88.7 Allergy status to serum and vaccine
CPT/HCPCS: 36415; 71045; 73620; 80053; 83605; 83735; 83880; 84484; 85025; 85610; 85730; 87040 ×2; 93005; 99285; U0002; 80048; 81001; 82272; 82947; 83540; 83550; 85027; 87070; 87086; 87088; 87186; 97110-GP; 97161-GP; 97166-GO; 97530-GP; A9270-GY; J1956; J2405; J3475; J3480; J7512

== ENCOUNTER 2021-07-18 09:12 | Inpatient (IN) | payer MEDICARE, BC ==
[2021-07-19] MEDS ORDERED: Polyethylene Glycol 3350 Powder 17 GM Packet PO PRN (13:26)
[2021-07-19] MEDS ORDERED: Albuterol 6.7 GM Inhaler INH PRN (13:26)
[2021-07-19] MEDS ORDERED: Albuterol 0.083% 2.5 MG/3 ML Neb Soln INH PRN (13:26)
[2021-07-19] MEDS ORDERED: Bisacodyl 5 MG Tab PO PRN (13:26)
[2021-07-19] MEDS ORDERED: Docusate Sodium 100 MG Cap PO PRN (13:26)
--- NOTE | 2021-07-19 13:37 | PCM.HP ---
H&P History of Present Illness - General Date of Service: 07/19/21 Admit Problem/Dx: Admission Diagnosis/Problem Admission Diagnosis/Problem Chronic respiratory failure Source of Information: Patient, Old Records - History of Present Illness Initial Comments - Free Text/Narative: Pt was transferred to Swing bed for further physical therapy. Pt was hospitalized for generalized weakness, Hypokalemia, Hypomagnesemia, acute on chronic obstructive pulmonary disease, Recurrent right pleural effusion (atelectasis vs infiltrate). 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 Generalized weakness: Pt is very frail at his baseline. For PT/OT>> to SWING Hypotension SBP~ 90. verapamil was DCed. Pt was started Midodrine to TID. Per RN: no gross blood in stool or melena and Occult stool was neg. Anemia: as Pt daughter Ms. Clancy. Pt just had Darbepoetin on for hgb of 8. iron studies: OK . to continue weekly Hypokalemia, Hypomagnesemia: better . hold K replacement. resume Lasix at 20 mg daily Acute on chronic obstructive pulmonary disease: continue with O2 and Nebs Rt pleural effusion with lower lobe atelectasis vs infiltrate: Lasix + Levaquin Recurrent right pleural effusion, To resume Lasix on discharge. Acute osteomyelitis of metatarsal bone of left foot: To f/u with his ceramic maker demonstrator and vascular surgeon as outpt. Chronic kidney disease. continue home medications A fib on chronic anticoagulation. - Related Data Allergies/Adverse Reactions: Allergies Allergy/AdvReac Type Severity Reaction Status Date / Time cephalexin monohydrate Allergy Cannot Verified 07/15/21 15:04 [From Keflex] Remember Penicillins Allergy Cannot Verified 07/15/21 15:04 Remember tetanus and diphtheria Allergy Cannot Verified 07/15/21 15:04 toxoids Remember [tetanus & diphtheria toxoids] Home Medications: Home Meds Albuterol [Proventil Neb Soln] 2.5 mg INH Q4HR PRN 04/30/18 [History] Albuterol [Ventolin HFA] 2 puff INH Q4HR PRN 04/30/18 [History] Fluticasone/Salmeterol [Advair 500-50] 1 puff INH BID 04/30/18 [History] Tamsulosin HCl 0.4 mg PO DAILY 04/30/18 [History] Tiotropium [Spiriva HandiHaler] 18 mcg INH DAILY 04/30/18 [History] allopurinoL [Zyloprim] 100 mg PO DAILY 04/30/18 [History] Calcitriol 0.5 mcg PO .MTUWTHF 07/15/21 [History] Ferrous Sulfate 325 mg PO DAILY 07/15/21 [History] Finasteride [Proscar] 5 mg PO DAILY 07/15/21 [History] Omeprazole 20 mg PO ACBREAKFAST 07/15/21 [History] Warfarin Sodium [Jantoven] 4 mg PO .4DAYSWEEKLY 07/15/21 [History] polyethylene glycoL 3350 [MiraLAX] 17 gm PO DAILY PRN 07/15/21 [History] predniSONE [Prednisone] 5 mg PO DAILY 07/15/21 [History] Acetaminophen [Acetaminophen Extra Strength] 500 mg PO Q6H PRN 07/16/21 [History] Albuterol/Ipratropium [DuoNeb 3.0-0.5 MG/3 ML] 3 ml IH TID 07/16/21 [History] Cyanocobalamin (Vitamin B-12) [Cyanocobalamin Injection] 1,000 mcg IM .MONTHLY 07/16/21 [History] Furosemide 40 mg PO DAILY 07/16/21 [History] Magnesium Oxide 400 mg PO DAILY 07/16/21 [History] Potassium Chloride 20 meq PO BIDMEALS 07/16/21 [History] Verapamil HCl 40 mg PO BID 07/16/21 [History] Warfarin Sodium [Jantoven] 6 mg PO .3DAYSWEEKLY 07/16/21 [History] metOLazone [Metolazone] 2.5 mg PO DAILY 07/16/21 [History] Lidocaine HCl/Benzyl Alcohol [Salonpas Lidocain Pls 4-10% Cr] 85 gm TP QID 07/18/21 [History] Past Medical History HEENT History: Reports: Hard of Hearing, Other (See Below) Other HEENT History: bilateral hearing aids, dentures, reading glasses Cardiovascular History: Reports: Afib, Angina, Heart Failure, Hypertension Respiratory History: Reports: COPD, Pneumonia, Recurrent, Other (See Below) Other Respiratory History: emphysema Gastrointestinal History: Reports: Bowel Obstruction, GERD Genitourinary History: Reports: Prostate Disorder, Renal Calculus Musculoskeletal History: Reports: Arthritis Neurological History: Reports: None Psychiatric History: Reports: None Endocrine/Metabolic History: Reports: None Hematologic History: Reports: None Immunologic History: Reports: None Oncologic (Cancer) History: Reports: None Dermatologic History: Reports: Eczema, Psoriasis Other Dermatologic History: questionable - Infectious Disease History Infectious Disease History: Reports: Chicken Pox, Measles, Mumps, Pertussis (Whooping Cough) - Past Surgical History GI Surgical History: Reports: Small Bowel Musculoskeletal Surgical History: Reports: Hip Replacement, ORIF, Other (See Below) Other Musculoskeletal Surgeries/Procedures:: left ORIF, Right KARIS, 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 General: Denies: Fever, Chills Pulmonary: Denies: Shortness of Breath Cardiovascular: Denies: Chest Pain Gastrointestinal: Denies: Abdominal Pain, Nausea Genitourinary: Denies: Hematuria Psychiatric: Denies: Confusion Neurological: Denies: Confusion Exam - Exam Exam: See Below - Exam Quality Assessment: Supplemental Oxygen General: Alert, Cooperative, Mild Distress (baseline) HEENT: EOMI Lungs: Clear to Auscultation Cardiovascular: Irregular Rhythm GI/Abdominal Exam: Soft Extremities: Pedal Edema Skin: Warm Neurological: Cranial Nerves Intact Neuro Extensive - Mental Status: Alert, Oriented x3 Neuro Extensive - Motor, Sensory, Reflexes: CN II-XII Intact, Normal Gait. No: Motor/Sensory Deficits Psychiatric: Alert, Normal Affect Problem List Initiated/Reviewed/Updated: No Orders Last 24hrs: Active Orders 24 hr Category Date Time Status Admission Status [Patient Status] [ADT] Routine ADT 07/19/21 13:32 Ordered Antiembolic Devices [RC] PER UNIT ROUTINE Care 07/19/21 13:26 Ordered Antiembolic Devices [RC] PER UNIT ROUTINE Care 07/19/21 13:26 Ordered Communication Order [RC] DAILY Care 07/19/21 13:26 Ordered Dressing Change [Wound Care] [RC] DAILY Care 07/19/21 13:26 Ordered Oxygen Therapy [RC] PRN Care 07/19/21 13:26 Ordered RT Aerosol Therapy [RC] ASDIRECTED Care 07/19/21 13:26 Ordered RT Aerosol Therapy [RC] ASDIRECTED Care 07/19/21 13:26 Ordered RT Post Treatment Assessment [RC] Click to Edit Care 07/19/21 13:26 Ordered RT Post Treatment Assessment [RC] Click to Edit Care 07/19/21 13:26 Ordered RT Pre-Treatment Assessment [RC] Click to Edit Care 07/19/21 13:26 Ordered RT Pre-Treatment Assessment [RC] Click to Edit Care 07/19/21 13:26 Ordered Up With Assistance [RC] ASDIRECTED Care 07/19/21 13:26 Ordered Up to Chair [RC] ASDIRECTED Care 07/19/21 13:26 Ordered VTE/DVT Education [RC] PER UNIT ROUTINE Care 07/19/21 13:26 Ordered Vital Signs [RC] QSHIFT Care 07/19/21 13:35 Ordered Consult to Occupational Therapy [OT Evaluation and Cons 07/19/21 13:26 Ordered Treatment] [CONS] Routine Consult to Physical Therapy [PT Evaluation and Cons 07/19/21 13:26 Ordered Treatment] [CONS] Routine Regular Diet [DIET] Diet 07/19/21 Dinner Ordered Acetaminophen [TylenoL] Med 07/19/21 13:26 Ordered 650 mg PO Q4H PRN Acetaminophen/HYDROcodone [[place] 325-5 MG] Med 07/19/21 13:26 Ordered 1 tab PO Q4H PRN Albuterol [Proventil HFA] Med 07/19/21 13:26 Ordered 2 gm INH Q4HR PRN Albuterol [Proventil Neb Soln] Med 07/19/21 13:26 Ordered 2.5 mg INH Q4HR PRN Docusate Sodium [Colace] Med 07/19/21 13:26 Ordered 100 mg PO BID PRN Ferrous Sulfate Med 07/20/21 09:00 Ordered 325 mg PO DAILY Furosemide [Lasix] Med 07/20/21 09:00 Ordered 20 mg PO DAILY Levofloxacin/Dextrose 5%-Water [Levaquin in D5W 500 MG/ Med 07/19/21 18:45 Ordered 100 ML] 500 mg Premix Bag 1 bag IV Q24H Magnesium Oxide Med 07/19/21 18:00 Ordered 250 mg PO BIDMEALS Midodrine Med 07/19/21 14:00 Ordered 2.5 mg PO TID Mometasone/Formoterol [Dulera 200-5 MCG] Med 07/19/21 21:00 Ordered 2 puff IH BID Omeprazole Med 07/20/21 06:00 Ordered 20 mg PO ACBREAKFAST Ondansetron [Zofran ODT] Med 07/19/21 13:34 Ordered 4 mg PO Q6H PRN Patient's Own Medication [Ptom] Med 07/19/21 17:00 Ordered 1 each TOP QID Pharmacy to Dose - Warfarin Med 07/19/21 13:26 Pending 1 dose .XX ASDIRECTED Tamsulosin [Flomax] Med 07/20/21 09:00 Ordered 0.4 mg PO DAILY Tiotropium [Spiriva HandiHaler] Med 07/20/21 09:00 Ordered 18 mcg INH DAILY allopurinoL [Zyloprim] Med 07/20/21 09:00 Ordered 100 mg PO DAILY bisacodyL [Dulcolax] Med 07/19/21 13:26 Ordered 5 mg PO DAILY PRN calcitrioL [Rocaltrol] Med 07/20/21 08:00 Ordered 0.5 mcg PO MoTuWeThFr@0800 levoFLOXacin [Levaquin] Med 07/19/21 13:45 Ordered 500 mg PO Q24H polyethylene glycoL 3350 [MiraLAX] Med 07/19/21 13:26 Ordered 17 gm PO DAILY PRN predniSONE Med 07/20/21 09:00 Ordered 5 mg PO DAILY VERA Hose [Antiembolic Hose] [OM.PC] Routine Oth 07/19/21 13:26 Ordered Code Status [Resuscitation Status] Routine Resus Stat 07/19/21 13:30 Ordered Medication Orders Acetaminophen (Acetaminophen 325 Mg Tab) 650 mg PO Q4H PRN PRN Reason: Pain (Mild 1-3)/fever Hydrocodone Bitart/Acetaminophen (Acetaminophen/Hydrocodone 325-5 Mg Tab) 1 tab PO Q4H PRN PRN Reason: Pain (severe 7-10) Albuterol (Albuterol 0.083% 2.5 Mg/3 Ml Neb Soln) 2.5 mg INH Q4HR PRN PRN Reason: Wheezing Albuterol (Albuterol 6.7 Gm Inhaler) 2 gm INH Q4HR PRN PRN Reason: Wheezing Allopurinol (Allopurinol 100 Mg Tab) 100 mg PO DAILY [facility] Bisacodyl (Bisacodyl 5 Mg Tab) 5 mg PO DAILY PRN PRN Reason: Constipation Calcitriol (Calcitriol 0.25 Mcg Cap) 0.5 mcg PO MoTuWeThFr@0800 ALEJANDRA Docusate Sodium (Docusate Sodium 100 Mg Cap) 100 mg PO BID PRN PRN Reason: Constipation Ferrous Sulfate (Ferrous Sulfate 325 Mg Tab) 325 mg PO DAILY ALJEANDRA Furosemide (Furosemide 20 Mg Tab) 20 mg PO DAILY [facility] Levofloxacin/Dextrose 500 mg/ (Premix) 100 mls @ 100 mls/hr IV Q24H ALEJANDRA Levofloxacin (Levofloxacin 500 Mg Tab) 500 mg PO Q24H ALEJANDRA Magnesium Oxide (Magnesium Oxide 250 Mg Tab) 250 mg PO BIDMEALS [facility] Midodrine (Midodrine 2.5 Mg Tab) 2.5 mg PO TID [facility] Mometasone Furoate/Formoterol Fumar (Formoterol/Mometasone 200-5 Mcg 8.8 Gm Inhaler) 2 puff IH BID [facility] Omeprazole (Omeprazole 20 Mg Cap.Cr) 20 mg PO ACBREAKFAST [facility] Ondansetron HCl (Ondansetron 4 Mg Tab.Dis) 4 mg PO Q6H PRN PRN Reason: Vomiting Patient Own Medication (Patient's Own Medication 1 Each) 1 each TOP QID [facility] Polyethylene Glycol (Polyethylene Glycol 3350 Powder 17 Gm Packet) 17 gm PO DAILY PRN PRN Reason: Constipation Prednisone (Prednisone 5 Mg Tab) 5 mg PO DAILY [facility] Tamsulosin HCl (Tamsulosin 0.4 Mg Cap.Er) 0.4 mg PO DAILY [facility] Tiotropium [place] (Tiotropium Inhaler 18 Mcg Inhalation Powder Cap Kit Of 5) 18 mcg INH DAILY [facility] Warfarin Sodium (Pharmacy To Dose - Warfarin) 1 dose .XX ASDIRECTED [facility] Assessment/Plan Comment:: Pt was transferred to Swing bed for further physical therapy. Pt was hospitalized for generalized weakness, Hypokalemia, Hypomagnesemia, acute on chronic obstructive pulmonary disease, Recurrent right pleural effusion (atelectasis vs infiltrate). 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 Generalized weakness: Pt is very frail at his baseline. For PT/OT>> to SWING Anemia of CKD as Pt daughter Ms. Julieth. Pt just had Darbepoetin on for hgb of 8. iron studies: OK . to continue weekly. Hypokalemia, Hypomagnesemia: better . hold K replacement. resume Lasix at 20 mg daily. labs on Friday. Acute on chronic obstructive pulmonary disease: continue with O2 and Nebs Rt pleural effusion with lower lobe atelectasis vs infiltrate: Lasix + Levaquin Recurrent right pleural effusion, To resume Lasix. Acute osteomyelitis of metatarsal bone of left foot: To f/u with his ceramic maker demonstrator and vascular surgeon as outpt. Chronic kidney disease. continue home medications A Fib on chronic warfarin. Pharmacy is following. DNR/DNI
[2021-07-19] MEDS: [UNRECOGNIZED DRUG - OTHER] TOP SCH ×2 (18:00→20:06)
[2021-07-19] MEDS ORDERED: Levofloxacin 500 MG Tab PO SCH (18:00)
[2021-07-19] MEDS ORDERED: Levofloxacin/Dextrose 5%-Water 500 MG in Premix Bag 1 BAG IV SCH (18:45)
[2021-07-19] MEDS: Formoterol/Mometasone 200-5 MCG 8.8 GM Inhaler IH SCH ×2 (19:56→20:03)
[2021-07-19] MEDS: Midodrine 2.5 MG Tab PO SCH ×2 (19:56→20:03)
[2021-07-20] MEDS: Omeprazole 20 MG Cap.CR PO SCH (05:34)
[2021-07-20] MEDS: Ferrous Sulfate 325 MG Tab PO SCH (08:18)
[2021-07-20] MEDS: Tamsulosin 0.4 MG Cap.ER PO SCH (08:18)
[2021-07-20] MEDS: Allopurinol 100 MG Tab PO SCH (08:19)
[2021-07-20] MEDS: Midodrine 2.5 MG Tab PO SCH ×3 (08:19→21:27)
[2021-07-20] MEDS: predniSONE 5 MG Tab PO SCH (08:19)
[2021-07-20] MEDS: Calcitriol 0.25 MCG Cap PO SCH (08:19)
[2021-07-20] MEDS: Tiotropium Inhaler 18 MCG Inhalation Powder Cap Kit of 5 INH SCH (08:20)
[2021-07-20] MEDS: Formoterol/Mometasone 200-5 MCG 8.8 GM Inhaler IH SCH ×2 (08:20→21:32)
[2021-07-20] MEDS: [UNRECOGNIZED DRUG - OTHER] TOP SCH ×4 (08:22→21:32)
[2021-07-20] MEDS: Furosemide 20 MG Tab PO SCH (08:26)
[2021-07-20] MEDS: Ondansetron 4 MG Tab.DIS PO PRN (13:47)
[2021-07-20] MEDS ORDERED: Warfarin 2 MG Tab PO ONE (14:00)
[2021-07-20] MEDS: Acetaminophen/HYDROcodone 325-5 MG Tab PO PRN (21:28)
[2021-07-21] MEDS: Omeprazole 20 MG Cap.CR PO SCH (05:51)
[2021-07-21] MEDS: Furosemide 20 MG Tab PO SCH (09:12)
[2021-07-21] MEDS: Tamsulosin 0.4 MG Cap.ER PO SCH (09:12)
[2021-07-21] MEDS: Formoterol/Mometasone 200-5 MCG 8.8 GM Inhaler IH SCH ×2 (09:12→21:15)
[2021-07-21] MEDS: Midodrine 2.5 MG Tab PO SCH ×3 (09:12→21:15)
[2021-07-21] MEDS: Allopurinol 100 MG Tab PO SCH (09:12)
[2021-07-21] MEDS: predniSONE 5 MG Tab PO SCH (09:12)
[2021-07-21] MEDS: Ferrous Sulfate 325 MG Tab PO SCH (09:12)
[2021-07-21] MEDS: Tiotropium Inhaler 18 MCG Inhalation Powder Cap Kit of 5 INH SCH (09:14)
[2021-07-21] MEDS: [UNRECOGNIZED DRUG - OTHER] TOP SCH ×4 (09:17→21:15)
[2021-07-21] MEDS ORDERED: Warfarin 2 MG Tab PO ONE (14:00)
[2021-07-21] MEDS: Ondansetron 4 MG Tab.DIS PO PRN (17:01)
[2021-07-22] MEDS: Acetaminophen/HYDROcodone 325-5 MG Tab PO PRN (02:07)
[2021-07-22] MEDS: Omeprazole 20 MG Cap.CR PO SCH (05:27)
[2021-07-22] MEDS: Tamsulosin 0.4 MG Cap.ER PO SCH (09:21)
[2021-07-22] MEDS: Allopurinol 100 MG Tab PO SCH (09:22)
[2021-07-22] MEDS: Midodrine 2.5 MG Tab PO SCH ×3 (09:22→20:44)
[2021-07-22] MEDS: Furosemide 20 MG Tab PO SCH (09:22)
[2021-07-22] MEDS: predniSONE 5 MG Tab PO SCH (09:22)
[2021-07-22] MEDS: Ferrous Sulfate 325 MG Tab PO SCH (09:22)
[2021-07-22] MEDS: Formoterol/Mometasone 200-5 MCG 8.8 GM Inhaler IH SCH ×2 (12:09→20:44)
[2021-07-22] MEDS: Tiotropium Inhaler 18 MCG Inhalation Powder Cap Kit of 5 INH SCH (12:09)
[2021-07-22] MEDS: [UNRECOGNIZED DRUG - OTHER] TOP SCH ×4 (12:09→20:46)
[2021-07-22] MEDS ORDERED: Warfarin 2 MG Tab PO ONE (14:00)
[2021-07-23] MEDS: Omeprazole 20 MG Cap.CR PO SCH (05:20)
[2021-07-23] MEDS: Formoterol/Mometasone 200-5 MCG 8.8 GM Inhaler IH SCH ×2 (09:45→21:53)
[2021-07-23] MEDS: Tiotropium Inhaler 18 MCG Inhalation Powder Cap Kit of 5 INH SCH (09:45)
[2021-07-23] MEDS: predniSONE 5 MG Tab PO SCH (09:46)
[2021-07-23] MEDS: Midodrine 2.5 MG Tab PO SCH ×3 (09:46→21:52)
[2021-07-23] MEDS: Tamsulosin 0.4 MG Cap.ER PO SCH (09:46)
[2021-07-23] MEDS: Furosemide 20 MG Tab PO SCH (09:46)
[2021-07-23] MEDS: Calcitriol 0.25 MCG Cap PO SCH (09:46)
[2021-07-23] MEDS: Ferrous Sulfate 325 MG Tab PO SCH (09:46)
[2021-07-23] MEDS: [UNRECOGNIZED DRUG - OTHER] TOP SCH ×4 (10:46→21:53)
[2021-07-23] MEDS: Allopurinol 100 MG Tab PO SCH ×2 (10:46→11:02)
--- NOTE | 2021-07-23 11:26 | PCM.PN ---
- General Info Date of Service: 07/23/21 Subjective Update: Nursing and PT are reporting that pt is refusing to participate in the activities. Pt denies any complain. Functional Status: Reports: Pain Controlled, Tolerating Diet - Review of Systems General: Denies: Fever Pulmonary: Denies: Shortness of Breath Cardiovascular: Denies: Chest Pain Gastrointestinal: Denies: Abdominal Pain Psychiatric: Denies: Confusion - Patient Data Vitals - Most Recent: Last Vital Signs Temp 96.5 F L 07/23/21 08:00 Pulse 107 H 07/23/21 08:00 Resp 18 07/23/21 08:00 BP 89/58 L 07/23/21 08:00 Pulse Ox 90 L 07/23/21 08:00 Weight - Most Recent: 136 lb 6 oz I&O - Last 24 Hours: Intake & Output 07/22/21 07/23/21 07/23/21 22:59 06:59 14:59 Intake Total 550 100 Output Total 200 350 Balance 350 -250 Lab Results Last 24 Hours: Laboratory Results - last 24 hr 07/23/21 07/23/21 07/23/21 Range/Units 05:35 05:35 05:35 WBC 5.7 (5.0-10.0) 10^3/uL RBC 2.36 L (4.6-6.2) 10^6/uL Hgb 8.8 L (14.0-18.0) g/dL Hct 25.7 L (40.0-54.0) % MCV 108.9 H (80-100) fL MCH 37.3 H (27.0-34.0) pg MCHC 34.2 (33.0-35.0) g/dL Plt Count 90 L (150-450) 10^3/uL Neut % (Auto) 72.7 (42.2-75.2) % Lymph % (Auto) 18.5 L (20.5-50.1) % Garrard % (Auto) 8.6 H (2-8) % Eos % (Auto) 0.0 L (1.0-3.0) % Baso % (Auto) 0.2 (0.0-1.0) % PT 30.2 H (9.0-12.0) SEC INR 3.1 H (0.9-1.2) Sodium 133 L (136-145) mmol/L Potassium 3.0 L (3.5-5.1) mmol/L Chloride 96 L (98-107) mmol/L Carbon Dioxide 28 (21-32) mmol/L Anion Gap 12.0 (7-13) mEq/L BUN 72 H (7-18) mg/dL Creatinine 2.67 H (0.70-1.30) mg/dL Est Cr Clr Drug Dosing 17.05 mL/min Estimated GFR (MDRD) 23 Glucose 78 (70-99) mg/dL Calcium 7.7 L (8.5-10.1) mg/dL Med Orders - Current: Current Medications Acetaminophen (Acetaminophen 325 Mg Tab) 650 mg PO Q4H PRN PRN Reason: Pain (Mild 1-3)/fever Hydrocodone Bitart/Acetaminophen (Acetaminophen/Hydrocodone 325-5 Mg Tab) 1 tab PO Q4H PRN PRN Reason: Pain (severe 7-10) Last Admin: 07/22/21 02:07 Dose: 1 tab Documented by: Albuterol (Albuterol 0.083% 2.5 Mg/3 Ml Neb Soln) 2.5 mg INH Q4HR PRN PRN Reason: Wheezing Albuterol (Albuterol 6.7 Gm Inhaler) 2 gm INH Q4HR PRN PRN Reason: Wheezing Last Admin: 07/21/21 17:00 Dose: 2 puff Documented by: Allopurinol (Allopurinol 100 Mg Tab) 100 mg PO DAILY [facility] Last Admin: 07/23/21 10:46 Dose: 100 mg Documented by: Bisacodyl (Bisacodyl 5 Mg Tab) 5 mg PO DAILY PRN PRN Reason: Constipation Calcitriol (Calcitriol 0.25 Mcg Cap) 0.5 mcg PO MoTuWeThFr@0800 [facility] Last Admin: 07/23/21 09:46 Dose: 0.5 mcg Documented by: Darbepoetin Woody (Darbepoetin Woody 25 Mcg/0.42 Ml Syringe) 25 mcg SUBCUT Th@1200 [facility] Docusate Sodium (Docusate Sodium 100 Mg Cap) 100 mg PO BID PRN PRN Reason: Constipation Ferrous Sulfate (Ferrous Sulfate 325 Mg Tab) 325 mg PO DAILY [facility] Last Admin: 07/23/21 09:46 Dose: 325 mg Documented by: Furosemide (Furosemide 20 Mg Tab) 20 mg PO DAILY [facility] Last Admin: 07/23/21 09:46 Dose: 20 mg Documented by: Magnesium Oxide (Magnesium Oxide 250 Mg Tab) 250 mg PO BIDMEALS [facility] Last Admin: 07/23/21 09:46 Dose: 250 mg Documented by: Midodrine (Midodrine 2.5 Mg Tab) 2.5 mg PO TID [facility] Last Admin: 07/23/21 09:46 Dose: 2.5 mg Documented by: Mometasone Furoate/Formoterol Fumar (Formoterol/Mometasone 200-5 Mcg 8.8 Gm Inhaler) 2 puff IH BID [facility] Last Admin: 07/23/21 09:45 Dose: 2 puff Documented by: Omeprazole (Omeprazole 20 Mg Cap.Cr) 20 mg PO ACBREAKFAST [facility] Last Admin: 07/23/21 05:20 Dose: 20 mg Documented by: Ondansetron HCl (Ondansetron 4 Mg Tab.Dis) 4 mg PO Q6H PRN PRN Reason: Vomiting Last Admin: 07/21/21 17:01 Dose: 4 mg Documented by: Michael Velasco Lidocaine (Plus) 1 each TOP QID [facility] Last Admin: 07/23/21 10:46 Dose: Not Given Documented by: Polyethylene Glycol (Polyethylene Glycol 3350 Powder 17 Gm Packet) 17 gm PO DAILY PRN PRN Reason: Constipation Prednisone (Prednisone 5 Mg Tab) 5 mg PO DAILY [facility] Last Admin: 07/23/21 09:46 Dose: 5 mg Documented by: Tamsulosin HCl (Tamsulosin 0.4 Mg Cap.Er) 0.4 mg PO DAILY [facility] Last Admin: 07/23/21 09:46 Dose: 0.4 mg Documented by: Tiotropium [place] (Tiotropium Inhaler 18 Mcg Inhalation Powder Cap Kit Of 5) 18 mcg INH DAILY [facility] Last Admin: 07/23/21 09:45 Dose: 18 mcg Documented by: Warfarin Sodium (Pharmacy To Dose - Warfarin) 1 dose .XX ASDIRECTED [facility] Warfarin Sodium (Warfarin 2 Mg Tab) 2 mg PO ONETIME ONE Stop: 07/23/21 14:01 Discontinued Medications Allopurinol (Allopurinol 100 Mg Tab) 100 mg PO DAILY [facility] Last Admin: 07/23/21 11:02 Dose: Not Given Documented by: Levofloxacin (Levofloxacin 500 Mg Tab) 500 mg PO Q24H [facility] Last Admin: 07/19/21 17:59 Dose: 500 mg Documented by: Warfarin Sodium (Warfarin 2 Mg Tab) 4 mg PO ONETIME ONE Stop: 07/20/21 14:01 Last Admin: 07/20/21 13:36 Dose: 4 mg Documented by: Warfarin Sodium (Warfarin 2 Mg Tab) 4 mg PO ONETIME ONE Stop: 07/21/21 14:01 Last Admin: 07/21/21 13:38 Dose: 4 mg Documented by: Warfarin Sodium (Warfarin 2 Mg Tab) 4 mg PO ONETIME ONE Stop: 07/22/21 14:01 Warfarin Sodium (Warfarin 1 Mg Tab) 4 mg PO ONETIME ONE Stop: 07/22/21 14:01 Last Admin: 07/22/21 15:14 Dose: 4 mg Documented by: - Exam General: Alert, Oriented, Cooperative Lungs: Normal Respiratory Effort Cardiovascular: Irregular Rhythm GI/Abdominal Exam: Soft, Non-Tender Extremities: Pedal Edema (trace) Skin: Warm, Dry Neurological: No New Focal Deficit Psy/Mental Status: Alert - Patient Data Lab Results Last 24 hrs: Laboratory Results - last 24 hr 07/23/21 07/23/21 07/23/21 Range/Units 05:35 05:35 05:35 WBC 5.7 (5.0-10.0) 10^3/uL RBC 2.36 L (4.6-6.2) 10^6/uL Hgb 8.8 L (14.0-18.0) g/dL Hct 25.7 L (40.0-54.0) % MCV 108.9 H (80-100) fL MCH 37.3 H (27.0-34.0) pg MCHC 34.2 (33.0-35.0) g/dL Plt Count 90 L (150-450) 10^3/uL Neut % (Auto) 72.7 (42.2-75.2) % Lymph % (Auto) 18.5 L (20.5-50.1) % Garrard % (Auto) 8.6 H (2-8) % Eos % (Auto) 0.0 L (1.0-3.0) % Baso % (Auto) 0.2 (0.0-1.0) % PT 30.2 H (9.0-12.0) SEC INR 3.1 H (0.9-1.2) Sodium 133 L (136-145) mmol/L Potassium 3.0 L (3.5-5.1) mmol/L Chloride 96 L (98-107) mmol/L Carbon Dioxide 28 (21-32) mmol/L Anion Gap 12.0 (7-13) mEq/L BUN 72 H (7-18) mg/dL Creatinine 2.67 H (0.70-1.30) mg/dL Est Cr Clr Drug Dosing 17.05 mL/min Estimated GFR (MDRD) 23 Glucose 78 (70-99) mg/dL Calcium 7.7 L (8.5-10.1) mg/dL Result Diagrams: 07/23/21 05:35 07/23/21 05:35 Sepsis Event Note - Focused Exam Vital Signs: Vital Signs Temp Pulse Resp BP Pulse Ox 07/23/21 08:00 96.5 F L 107 H 18 89/58 L 90 L - Problem List Review Problem List Initiated/Reviewed/Updated: No - My Orders Last 24 Hours: My Active Orders 07/23/21 10:30 allopurinoL [Zyloprim] 100 mg PO DAILY 07/23/21 14:00 Warfarin [Coumadin] 2 mg PO ONETIME ONE 07/24/21 06:00 INR,PT,PROTHROMBIN TIME [COAG] DAILY 07/25/21 06:00 INR,PT,PROTHROMBIN TIME [COAG] DAILY 07/26/21 06:00 INR,PT,PROTHROMBIN TIME [COAG] DAILY 07/26/21 12:00 Darbepoetin Woody [Aranesp] 25 mcg SUBCUT Th@1200 - Plan Plan:: Pt was transferred to Swing bed for further physical therapy. Pt was hospitaliz ed for generalized weakness, Hypokalemia, Hypomagnesemia, acute on chronic obstructive pulmonary disease, Recurrent right pleural effusion (atelectasis vs infiltrate). 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 Generalized weakness: Pt is very frail at his baseline. For PT/OT>> to SWING. however pt is not participating much as per report. Case manger to discuss with family. Anemia of CKD as Pt daughter Ms. Clancy. Pt just had Darbepoetin on for hgb of 8. iron studies: OK . to continue weekly. seems to be improving. Hypokalemia, Hypomagnesemia: better . hold K replacement. resume Lasix at 20 mg daily. labs on Friday. Acute on chronic obstructive pulmonary disease: continue with O2 and Nebs Rt pleural effusion with lower lobe atelectasis vs infiltrate: Lasix + . completed his Levaquin course. Recurrent right pleural effusion, To resume Lasix. Acute osteomyelitis of metatarsal bone of left foot: To f/u with his day care home provider and vascular surgeon as outpt. Chronic kidney disease. continue home medications A Fib on chronic warfarin. Pharmacy is following. DNR/DNI
[2021-07-23] MEDS ORDERED: Potassium Chloride 10 MEQ Tab.ER PO ONE ×2 (11:30→13:40)
[2021-07-23] MEDS ORDERED: Albuterol 6.7 GM Inhaler INH PRN (11:39)
[2021-07-23] MEDS ORDERED: Warfarin 2 MG Tab PO ONE (14:00)
[2021-07-23] MEDS: Acetaminophen 325 MG Tab PO PRN (17:52)
[2021-07-24] MEDS: Omeprazole 20 MG Cap.CR PO SCH (06:23)
[2021-07-24] MEDS: Acetaminophen 325 MG Tab PO PRN (08:10)
[2021-07-24] MEDS: Formoterol/Mometasone 200-5 MCG 8.8 GM Inhaler IH SCH ×2 (10:06→20:43)
[2021-07-24] MEDS: Tiotropium Inhaler 18 MCG Inhalation Powder Cap Kit of 5 INH SCH (10:06)
[2021-07-24] MEDS: Calcitriol 0.25 MCG Cap PO SCH (10:07)
[2021-07-24] MEDS: Tamsulosin 0.4 MG Cap.ER PO SCH (10:07)
[2021-07-24] MEDS: Allopurinol 100 MG Tab PO SCH (10:08)
[2021-07-24] MEDS: Midodrine 2.5 MG Tab PO SCH ×3 (10:08→20:43)
[2021-07-24] MEDS: predniSONE 5 MG Tab PO SCH (10:08)
[2021-07-24] MEDS: Ferrous Sulfate 325 MG Tab PO SCH (10:08)
[2021-07-24] MEDS: [UNRECOGNIZED DRUG - OTHER] TOP SCH ×4 (10:15→20:44)
[2021-07-24 17:58] LABS: ANION GAP 10.2 mEq/L (7-13)
[2021-07-24] MEDS: Potassium Chloride 10 MEQ Tab.ER PO SCH (20:43)
[2021-07-25] MEDS: Omeprazole 20 MG Cap.CR PO SCH (05:00)
[2021-07-25] MEDS: Calcitriol 0.25 MCG Cap PO SCH (08:44)
[2021-07-25] MEDS: predniSONE 5 MG Tab PO SCH (08:45)
[2021-07-25] MEDS: Tamsulosin 0.4 MG Cap.ER PO SCH (08:45)
[2021-07-25] MEDS: Midodrine 2.5 MG Tab PO SCH ×3 (08:45→20:36)
[2021-07-25] MEDS: Ferrous Sulfate 325 MG Tab PO SCH (08:45)
[2021-07-25] MEDS: Formoterol/Mometasone 200-5 MCG 8.8 GM Inhaler IH SCH ×2 (08:48→20:36)
[2021-07-25] MEDS: Tiotropium Inhaler 18 MCG Inhalation Powder Cap Kit of 5 INH SCH (08:50)
[2021-07-25] MEDS: [UNRECOGNIZED DRUG - OTHER] TOP SCH ×4 (08:50→20:37)
[2021-07-25] MEDS ORDERED: Furosemide 20 MG Tab PO SCH (09:00)
[2021-07-25] MEDS: Potassium Chloride 10 MEQ Tab.ER PO SCH (20:36)
[2021-07-25] MEDS: Acetaminophen/HYDROcodone 325-5 MG Tab PO PRN (20:36)
[2021-07-26] MEDS: Omeprazole 20 MG Cap.CR PO SCH (06:09)
[2021-07-26] MEDS: Tamsulosin 0.4 MG Cap.ER PO SCH (08:46)
[2021-07-26] MEDS: Midodrine 2.5 MG Tab PO SCH ×2 (08:47→14:19)
[2021-07-26] MEDS: Ferrous Sulfate 325 MG Tab PO SCH (08:47)
[2021-07-26] MEDS: predniSONE 5 MG Tab PO SCH (08:47)
[2021-07-26] MEDS: Calcitriol 0.25 MCG Cap PO SCH (08:47)
[2021-07-26] MEDS: Acetaminophen 325 MG Tab PO PRN (08:48)
[2021-07-26] MEDS: Formoterol/Mometasone 200-5 MCG 8.8 GM Inhaler IH SCH (08:50)
[2021-07-26] MEDS: [UNRECOGNIZED DRUG - OTHER] TOP SCH ×3 (08:50→16:43)
[2021-07-26] MEDS: Tiotropium Inhaler 18 MCG Inhalation Powder Cap Kit of 5 INH SCH (08:54)
--- NOTE | 2021-07-26 13:34 | PCM.DCSUM1 ---
Discharge Summary - Discharge Data Discharge Date: 07/26/21 Discharge Disposition: Home, Self-Care 01 Condition: Good - Referral to Home Health Date of Face to Face Encounter: 07/26/21 Primary Care Physician: PCP None - Patient Summary/Data Consults: Consultations 07/19/21 13:26 Consult to Occupational Therapy [OT Evaluation and Treatment] [CONS] Routine Consult to Physical Therapy [PT Evaluation and Treatment] [CONS] Routine - Discharge Plan *PRESCRIPTION DRUG MONITORING PROGRAM REVIEWED*: Not Applicable *COPY OF PRESCRIPTION DRUG MONITORING REPORT IN PATIENT RODOLFO: Not Applicable Prescriptions/Med Rec: Hydrocodone/Acetaminophen [HYDROcodone-Acetaminophen 5-325 MG] 1 tab PO Q4H PRN #60 tab PRN Reason: Pain Home Medications: Home Meds Fluticasone/Salmeterol [Advair 500-50] 1 puff INH BID 04/30/18 [History] Tiotropium [Spiriva HandiHaler] 18 mcg INH DAILY 04/30/18 [History] Calcitriol 0.5 mcg PO .MTUWTHF 07/15/21 [History] Ferrous Sulfate 325 mg PO DAILY 07/15/21 [History] Finasteride [Proscar] 5 mg PO DAILY 07/15/21 [History] Omeprazole 20 mg PO ACBREAKFAST 07/15/21 [History] Warfarin Sodium [Jantoven] 4 mg PO .4DAYSWEEKLY 07/15/21 [History] polyethylene glycoL 3350 [MiraLAX] 17 gm PO DAILY PRN 07/15/21 [History] predniSONE [Prednisone] 5 mg PO DAILY 07/15/21 [History] Acetaminophen [Acetaminophen Extra Strength] 500 mg PO Q6H PRN 07/16/21 [History] Albuterol/Ipratropium [DuoNeb 3.0-0.5 MG/3 ML] 3 ml IH TID 07/16/21 [History] Cyanocobalamin (Vitamin B-12) [Cyanocobalamin Injection] 1,000 mcg IM .MONTHLY 07/16/21 [History] Furosemide 40 mg PO DAILY 07/16/21 [History] Magnesium Oxide 400 mg PO DAILY 07/16/21 [History] Potassium Chloride 20 meq PO BIDMEALS 07/16/21 [History] Warfarin Sodium [Jantoven] 6 mg PO .3DAYSWEEKLY 07/16/21 [History] Lidocaine HCl/Benzyl Alcohol [Salonpas Lidocain Pls 4-10% Cr] 85 gm TP QID 07/18/21 [History] Hydrocodone/Acetaminophen [HYDROcodone-Acetaminophen 5-325 MG] 1 tab PO Q4H PRN #60 tab 07/26/21 [Rx] Patient Handouts: Weakness, Gnok-pt-Dxns - Discharge Summary/Plan Comment DC Time >30 min.: No Total # of Minutes for Discharge Time: 20 - Patient Data Vitals - Most Recent: Last Vital Signs Temp 97.0 F 07/26/21 07:32 Pulse 102 H 07/26/21 07:32 Resp 18 07/26/21 07:32 BP 85/55 L 07/26/21 07:32 Pulse Ox 90 L 07/26/21 07:32 Weight - Most Recent: 142 lb I&O - Last 24 hours: Intake & Output 07/25/21 07/26/21 07/26/21 22:59 06:59 14:59 Intake Total 200 50 360 Output Total 100 50 Balance 100 0 360 Lab Results - Last 24 hrs: Laboratory Results - last 24 hr 07/26/21 Range/Units 05:55 PT 31.4 H (9.0-12.0) SEC INR 3.2 H (0.9-1.2) Med Orders - Current: Current Medications Acetaminophen (Acetaminophen 325 Mg Tab) 650 mg PO Q4H PRN PRN Reason: Pain (Mild 1-3)/fever Last Admin: 07/26/21 08:48 Dose: 650 mg Documented by: Hydrocodone Bitart/Acetaminophen (Acetaminophen/Hydrocodone 325-5 Mg Tab) 1 tab PO Q4H PRN PRN Reason: Pain (severe 7-10) Last Admin: 07/25/21 20:36 Dose: 1 tab Documented by: Albuterol (Albuterol 0.083% 2.5 Mg/3 Ml Neb Soln) 2.5 mg INH Q4HR PRN PRN Reason: Wheezing Albuterol (Albuterol 6.7 Gm Inhaler) 0 gm INH Q4HR PRN PRN Reason: Wheezing Bisacodyl (Bisacodyl 5 Mg Tab) 5 mg PO DAILY PRN PRN Reason: Constipation Calcitriol (Calcitriol 0.25 Mcg Cap) 0.5 mcg PO MoTuWeThFr@0800 ALEJANDRA Last Admin: 07/26/21 08:47 Dose: 0.5 mcg Documented by: Docusate Sodium (Docusate Sodium 100 Mg Cap) 100 mg PO BID PRN PRN Reason: Constipation Last Admin: 07/23/21 17:53 Dose: 100 mg Documented by: Ferrous Sulfate (Ferrous Sulfate 325 Mg Tab) 325 mg PO DAILY [facility] Last Admin: 07/26/21 08:47 Dose: 325 mg Documented by: Furosemide (Furosemide 20 Mg Tab) 20 mg PO MoWeFr@0900 [facility] Last Admin: 07/25/21 08:45 Dose: 20 mg Documented by: Magnesium Oxide (Magnesium Oxide 250 Mg Tab) 250 mg PO BIDMEALS [facility] Last Admin: 07/26/21 08:47 Dose: 250 mg Documented by: Midodrine (Midodrine 2.5 Mg Tab) 2.5 mg PO TID [facility] Last Admin: 07/26/21 08:47 Dose: 2.5 mg Documented by: Mometasone Furoate/Formoterol Fumar (Formoterol/Mometasone 200-5 Mcg 8.8 Gm Inhaler) 2 puff IH BID [facility] Last Admin: 07/26/21 08:50 Dose: 2 puff Documented by: Omeprazole (Omeprazole 20 Mg Cap.Cr) 20 mg PO ACBREAKFAST [facility] Last Admin: 07/26/21 06:09 Dose: 20 mg Documented by: Ondansetron HCl (Ondansetron 4 Mg Tab.Dis) 4 mg PO Q6H PRN PRN Reason: Vomiting Last Admin: 07/21/21 17:01 Dose: 4 mg Documented by: Michael Velasco Lidocaine (Plus) 1 each TOP QID [facility] Last Admin: 07/26/21 08:50 Dose: Not Given Documented by: Polyethylene Glycol (Polyethylene Glycol 3350 Powder 17 Gm Packet) 17 gm PO DAILY PRN PRN Reason: Constipation Potassium Chloride (Potassium Chloride 10 Meq Tab.Er) 20 meq PO BEDTIME [facility] Last Admin: 07/25/21 20:36 Dose: 20 meq Documented by: Prednisone (Prednisone 5 Mg Tab) 5 mg PO DAILY [facility] Last Admin: 07/26/21 08:47 Dose: 5 mg Documented by: Tamsulosin HCl (Tamsulosin 0.4 Mg Cap.Er) 0.4 mg PO DAILY [facility] Last Admin: 07/26/21 08:46 Dose: 0.4 mg Documented by: Tiotropium [place] (Tiotropium Inhaler 18 Mcg Inhalation Powder Cap Kit Of 5) 18 mcg INH DAILY [facility] Last Admin: 07/26/21 08:54 Dose: 18 mcg Documented by: Warfarin Sodium (Pharmacy To Dose - Warfarin) 1 dose .XX ASDIRECTED [facility] Warfarin Sodium (Warfarin 1 Mg Tab) 1 mg PO ONETIME ONE Stop: 07/26/21 14:01 Discontinued Medications Albuterol (Albuterol 6.7 Gm Inhaler) 2 gm INH Q4HR PRN PRN Reason: Wheezing Last Admin: 07/21/21 17:00 Dose: 2 puff Documented by: Allopurinol (Allopurinol 100 Mg Tab) 100 mg PO DAILY [facility] Last Admin: 07/23/21 11:02 Dose: Not Given Documented by: Allopurinol (Allopurinol 100 Mg Tab) 100 mg PO DAILY [facility] Last Admin: 07/24/21 10:08 Dose: 100 mg Documented by: Darbepoetin Woody (Darbepoetin Woody 25 Mcg/0.42 Ml Syringe) 25 mcg SUBCUT Th@1200 [facility] Furosemide (Furosemide 20 Mg Tab) 20 mg PO DAILY [facility] Last Admin: 07/23/21 09:46 Dose: 20 mg Documented by: Levofloxacin (Levofloxacin 500 Mg Tab) 500 mg PO Q24H [facility] Last Admin: 07/19/21 17:59 Dose: 500 mg Documented by: No Warfarin (Today ) 0 each PO ONETIME ONE Stop: 07/24/21 14:01 Last Admin: 07/24/21 15:40 Dose: Not Given Documented by: No Warfarin (Today ) 0 each PO ONETIME ONE Stop: 07/25/21 14:01 Last Admin: 07/25/21 13:59 Dose: Not Given Documented by: Potassium Chloride (Potassium Chloride 10 Meq Tab.Er) 40 meq PO ONETIME ONE Stop: 07/23/21 13:41 Last Admin: 07/23/21 13:44 Dose: 40 meq Documented by: Warfarin Sodium (Warfarin 2 Mg Tab) 4 mg PO ONETIME ONE Stop: 07/20/21 14:01 Last Admin: 07/20/21 13:36 Dose: 4 mg Documented by: Warfarin Sodium (Warfarin 2 Mg Tab) 4 mg PO ONETIME ONE Stop: 07/21/21 14:01 Last Admin: 07/21/21 13:38 Dose: 4 mg Documented by: Warfarin Sodium (Warfarin 2 Mg Tab) 4 mg PO ONETIME ONE Stop: 07/22/21 14:01 Warfarin Sodium (Warfarin 1 Mg Tab) 4 mg PO ONETIME ONE Stop: 07/22/21 14:01 Last Admin: 07/22/21 15:14 Dose: 4 mg Documented by: Warfarin Sodium (Warfarin 2 Mg Tab) 2 mg PO ONETIME ONE Stop: 07/23/21 14:01 Last Admin: 07/23/21 13:45 Dose: 2 mg Documented by:
[2021-07-26] MEDS: Acetaminophen/HYDROcodone 325-5 MG Tab PO PRN (17:04)
== END 2021-07-26 17:45 | disposition home or self-care (01) | DRG 948 ==
LOC: DL.MS 07-19 14:51
PROVIDERS: ADMIT Internal Medicine; ATTEND Internal Medicine
DX: R53.81 Other malaise (principal); J96.10 Chronic respiratory failure, unspecified whether with hypoxia or hypercapnia; J90 Pleural effusion, not elsewhere classified; I48.20 Chronic atrial fibrillation, unspecified; M86.172 Other acute osteomyelitis, left ankle and foot; E87.6 Hypokalemia; E83.42 Hypomagnesemia; N18.9 Chronic kidney disease, unspecified; D63.1 Anemia in chronic kidney disease; Z79.01 Long term (current) use of anticoagulants; D50.9 Iron deficiency anemia, unspecified; Z88.1 Allergy status to other antibiotic agents; Z88.0 Allergy status to penicillin; Z88.7 Allergy status to serum and vaccine; Z79.52 Long term (current) use of systemic steroids; Z79.899 Other long term (current) drug therapy; Z87.891 Personal history of nicotine dependence; H91.90 Unspecified hearing loss, unspecified ear; J43.9 Emphysema, unspecified; Z96.641 Presence of right artificial hip joint; K21.9 Gastro-esophageal reflux disease without esophagitis; Z66 Do not resuscitate
CPT/HCPCS: 36415; 51798; 80048; 80053; 82607; 82746; 83735; 85025; 85610; 97110-GP; 97161-GP; 97166-GO; 97530-GO; A9270-GY; J7512